=== PATIENT | male | born 1980 | race Caucasian/White ===

== ENCOUNTER 2017-07-27 09:23 | Inpatient (IN) | END 2017-08-06 18:45 | DRG 897 ==

== ENCOUNTER 2017-08-21 02:55 | Inpatient (IN) | END 2017-08-29 12:25 | disposition home or self-care (01) | DRG 896 ==

== ENCOUNTER 2018-04-13 15:48 | Inpatient (IN) | payer OTHER ==
[~2018-04-13] VITALS: Ht 175.3 cm; Wt 68.6 kg
[~2018-04-13 15:48] MED LIST: FLUO40CA10 PO; FOLI-49 PO; MULTI PO; QUET300T2 PO; THIA100T56 PO; TRA100 PO
[2018-04-13 17:54] VITALS: BP 128/83; PULSE 103; RESP 18
[2018-04-13 17:55] VITALS: PULSE 113
[2018-04-13] MEDS ORDERED: HYDROCODONE/APAP (5/325) TAB PO PRN (18:00)
[2018-04-13] MEDS ORDERED: ACETAMINOPHEN 325 MG TAB PO PRN (18:00)
[2018-04-13] MEDS ORDERED: NACL 0.9% 3 ML SYG IV SCH (18:00)
[2018-04-13] MEDS ORDERED: ACETAMINOPHEN 650 MG SUPP PR PRN (18:00)
[2018-04-13 18:25] VITALS: Ht 175.3 cm; Wt 68.6 kg
--- NOTE | 2018-04-13 18:27 | HP ---
Date/Time of Note Date/Time of Note DATE: 04/13/18 TIME: 18:27 Assessment/Plan VTE Prophylaxis Pharmacological prophylaxis: other Assessment/Plan Hospital Course Objective Physical exam General: Patient is laying in bed and answers questions appropriately Mentation: Patient is alert and oriented 4, Head: Normocephalic atraumatic Eyes: EOMI, pupils reactive to light Neck: Supple, nontender, midline Respiratory: Clear to auscultation bilaterally Cardiovascular: regular rate, no obvious murmurs Gastrointestinal: Tender to palpation, bowel sounds heard. Neurological: Moves all extremities spontaneously Skin: No new skin lesions Assessment and plan Acute abdominal pain secondary to acute pancreatitis -Lipase elevated to 394 at outside facility, patient states this is just like all his other pancreatitis episodes -Ultrasound gallbladder done at outside facility does not show any acute issues with abdominal pain, some gallbladder sludge but no acute cholecystitis -We will order stat CT of the abdomen pelvis to rule out pancreatic issues as ultrasound did not directly visualized pancreas -N.p.o. -IV fluids -Monitor Acute alcohol intoxication -Patient has a history of withdrawal -IV Ativan for now as patient is n.p.o., scheduled and as needed Mood disorder -Continue home meds when able to tolerate p.o. Disposition -Admit for alcohol withdrawal, acute alcohol intoxication as well as pancreatitis. HPI/ROS Admit Date/Time Admit Date/Time Apr 13, 2018 at 17:31 Hx of Present Illness Patient is a male with a past medical history of alcohol abuse and mood disorder who presented as a transfer from outside facility for acute ethanol intoxication as well as withdrawal with pancreatitis. Is complaining of abdominal pain at this time and anxiety, patient states that he knows that it is felt due to alcohol. Patient states that he is in a lot of pain however appears comfortable. Patient denies headache, shortness of breath, chest pain, leg pain PMH/Family/Social Past Medical History Medications Current Medications Sodium Chloride 1,000 ml @ 150 mls/hr Q6H40M IV ; Start 04/13/18 at 17:59; Status UNV IV Flush (NS 3 ml) 3 ml PER PROTOCOL IV ; Start 04/13/18 at 18:00 Lorazepam (Ativan) 0.5 mg Q6H PRN IV ANXIETY; Start 04/13/18 at 18:00 Ondansetron HCl (Zofran Inj) 4 mg Q6H PRN IV NAUSEA AND/OR VOMITING; Start 04/13/18 at 18:00 Acetaminophen (Tylenol Tab) 650 mg Q6H PRN PO PAIN LEVEL 1-3 OR FEVER; Start 04/13/18 at 18:00 Acetaminophen (Tylenol Supp) 650 mg Q6H PRN [place] PAIN LEVEL 1-3 OR FEVER; Start 04/13/18 at 18:00 Acetaminophen/ Hydrocodone Bitart ([place] (5/325)) 1 tab Q6H PRN PO PAIN LEVEL 4-6; Start 04/13/18 at 18:00 Morphine Sulfate (morphine SULFATE (PF)) 2 mg Q4H PRN IV PAIN LEVEL 7-10; Start 04/13/18 at 18:00 Multivitamins 10 ml/Thiamine HCl 100 mg/Folic Acid 1 mg/Sodium Chloride 1,011.2 ml @ 125 mls/ hr DAILY@09 IVPB ; Start 04/14/18 at 09:00 Lorazepam (Ativan) 1 mg Q6H IV ; Start 04/13/18 at 18:30 Pantoprazole (Protonix Iv) 40 mg BID IV ; Start 04/14/18 at 06:00; Status UNV Pantoprazole (Protonix Iv) 40 mg ONCE ONCE IV ; Start 04/13/18 at 18:30; Stop 04/13/18 at 18:31 Coded Allergies: No Known Allergy (Unverified , 07/27/17) Past Surgical History Past Surgical Hx: no surgical history Family History Significant Family History: no pertinent family hx Exam/Review of Systems Vital Signs Vitals Vital Signs Date Temp Pulse Resp B/P (MAP) Pulse Ox O2 O2 Flow FiO2 Time Delivery Rate 04/13/18 113 17:55 04/13/18 98.4 18 128/83 90 Room Air 17:54 (98) YOSELYN SCHWARZ Apr 13, 2018 18:27
[2018-04-13] MEDS ORDERED: PANTOPRAZOLE 40 MG INJ IV ONE (18:30)
[2018-04-13] MEDS: SOD CHLORIDE 0.9% 1,000 ML IV SCH (19:54)
[2018-04-13] MEDS: LORAZEPAM 2 MG INJ IV SCH (19:54)
[2018-04-13 20:00] VITALS: PULSE 114
[2018-04-13 20:16] VITALS: BP 129/82; PULSE 91; RESP 16
[2018-04-13] MEDS: morphine SULFATE/PF (2 MG/2 ML) SYG IV PRN (21:29)
--- NOTE | 2018-04-13 22:20 | NUR ---
RN NOTE Patient off unit went to CT, for ct abdomen..
--- NOTE | 2018-04-13 22:27 | NUR ---
RN NOTE PATIENT BACK FROM CT.
[2018-04-13] MEDS: POTASSIUM CHLORIDE 100 ML IVPB SCH (22:28)
[2018-04-13] MEDS: KETOROLAC 30 MG INJ IV PRN (23:07)
[2018-04-14] VITALS (14 sets, daily range): BP systolic 111–129; BP diastolic 67–87; PULSE 75–150; RESP 16–20
[2018-04-14] MEDS: POTASSIUM CHLORIDE 100 ML IVPB SCH (00:31)
[2018-04-14] MEDS: SOD CHLORIDE 0.9% 1,000 ML IV SCH ×4 (00:39→20:39)
[2018-04-14] MEDS: LORAZEPAM 2 MG INJ IV SCH ×4 (01:21→18:22)
[2018-04-14] MEDS: morphine SULFATE/PF (2 MG/2 ML) SYG IV PRN ×5 (01:30→23:57)
[2018-04-14] MEDS: PANTOPRAZOLE 40 MG INJ IV SCH ×2 (05:27→17:18)
[2018-04-14] MEDS: KETOROLAC 30 MG INJ IV PRN ×3 (05:27→22:11)
[2018-04-14] MEDS ORDERED: PANTOPRAZOLE 40 MG INJ IV SCH (06:00)
--- NOTE | 2018-04-14 06:40 | NUR ---
RN NOTE PATIENT WITH LOW URINE OUT PUT, BLADDER SCAN DONE WITH A POST VOID RESIDUAL OF [address] QUIGLEY NOTIFIED, AND HE ORDERED TO STRAIGHT CATH PATIENT.
--- NOTE | 2018-04-14 06:45 | NUR ---
RN NOTE PATIENT ALERT AND ORIENTED X 4, AMBULATORY WITH STEADY GAIT. PATIENT WITH LOW URINE OUT PUT 400 ML THROUGHOUT THE NIGHT, NOTIFIED DR. QUIGLEY AND HE ORDERED STRAIGHT CATH. PATIENT REFUSED STRAIGHT CATH FOR NOW, HE WANTS TO URINATE ON HIS OWN. DR. QUIGLEY NOTIFIED ABOUT THE PATIENT'S REFUSAL. WILL CONTINUE TO MONITOR PATIENT.
[2018-04-14] MEDS: MULTIVITAMINS 10 ML, FOLIC ACID 1 MG in SOD CHLORIDE 0.9% 1,000 ML IVPB SCH (08:51)
[2018-04-14] MEDS: THIAMINE IV FOR USE IN BANANA BAG IS CURRENTLY NOT AVAILABLE FROM MANUFACTURER. XX SCH (09:00)
[2018-04-14] MEDS: PIPER-TAZO 3.375 GM IV (PMX) 100 ML IVPB SCH ×3 (11:49→23:58)
--- NOTE | 2018-04-14 13:25 | NUR ---
SW: ETOH GUSTAVO met with this 37-year-old Faroese speaking male at bedside regarding ETOH abuse. Patient states he currently lives in a sober living facility located in [place], but states he does not know the exact address. Patient states he thinks he will be returning back to the sober living facility, as they have all of his belongings. He states he does not know the exact address, but states he knows how to get back. Patient requesting bus tokens, which will be provided upon d/c. Patient states he is currently single. States all of his friends and family live in [place]. Denies having an AHCD and he verbally designated his mother Susan Song ([phone]) as surrogate spokesperson. Substance use: Patient states that he had been sober from alcohol for about 6 months. However, states that he started drinking again about a week ago due to the holidays. States that his alcohol of preference is Vodka. States that he started off drinking a little bit, but it started increasing over the days. Patient states that he currently goes to [facility] as an outpatient about 2x a week for about 3 hours a day. Patient declined any other alcohol treatment programs, stating that he plans to return back to [facility]. Mental Health: Patient states he has a history of anxiety and OCD and states that he is involved with the [facility] program, which is what pays for his sober living expenses. Patient states he does not know the [facility] contact information and requested the contact number. SW provided him with the P contact information, and also provided him with resources for [facility]. Patient states he currently takes Prozac, Seroquel and Trazodone to manage symptoms. Patient denies any past/ present thoughts, ideations or plans of suicide/ homicide. Plan/ Follow UP: Plan is for patient to take the bus to go back to his current sober living location. He states he will contact his [employer] program worker regarding assistance if needed. He states that his sober living has all of his belongings. Patient will be provided with bus tokens. He declined needing any assistance with directions, etc, stating he knows how to get back. Patient states he will continue to attend [facility] for alcohol abuse, and declined any resources. Patient denies any other questions/ concerns at this time. Director Of Vendor Management remains available as needed throughout patient's treatment process.
--- NOTE | 2018-04-14 13:48 | PN ---
Date/Time of Note Date/Time of Note DATE: 04/14/18 TIME: 13:44 Objective Vitals Vital Signs Date Temp Pulse Resp B/P (MAP) Pulse Ox O2 O2 Flow FiO2 Time Delivery Rate 04/14/18 124 12:01 04/14/18 98.3 16 126/87 96 11:40 (100) 04/13/18 Room Air 17:54 Intake and Output 04/13/18 04/13/18 04/14/18 1515:00 23:00 07:00 IntakeIntake Total 1200 ml OutputOutput Total 450 ml BalanceBalance 750 ml Results Result Diagram: 04/14/18 0529 04/14/18 05 Medications Medications Current Medications Sodium Chloride 1,000 ml @ 150 mls/hr Q6H40M IV Last administered on 04/13/18at 19:54; Admin Dose 150 MLS/HR; Start 04/13/18 at 17:59 IV Flush (NS 3 ml) 3 ml PER PROTOCOL IV ; Start 04/13/18 at 18:00 Lorazepam (Ativan) 0.5 mg Q6H PRN IV ANXIETY; Start 04/13/18 at 18:00 Ondansetron HCl (Zofran Inj) 4 mg Q6H PRN IV NAUSEA AND/OR VOMITING; Start 04/13/18 at 18:00 Acetaminophen (Tylenol Tab) 650 mg Q6H PRN PO PAIN LEVEL 1-3 OR FEVER; Start 04/13/18 at 18:00 Acetaminophen (Tylenol Supp) 650 mg Q6H PRN [place] PAIN LEVEL 1-3 OR FEVER; Start 04/13/18 at 18:00 Acetaminophen/ Hydrocodone Bitart ([place] (5/325)) 1 tab Q6H PRN PO PAIN LEVEL 4-6; Start 04/13/18 at 18:00 Multivitamins 10 ml/Folic Acid 1 mg/Sodium Chloride 1,010.2 ml @ 125 mls/ hr DAILY@09 IVPB Last administered on 04/14/18at 08:51; Admin Dose 125 MLS/HR; Start 04/14/18 at 09:00 Lorazepam (Ativan) 1 mg Q6H IV Last administered on 04/14/18at 11:49; Admin Dose 1 MG; Start 04/13/18 at 18:30 Pantoprazole (Protonix Iv) 40 mg BID@0600,1800 IV Last administered on 04/14/18at 05:27; Admin Dose 40 MG; Start 04/14/18 at 06:00 Miscellaneous Information (* Miscellaneous Pharmacy Order) THIAMINE IV FOR USE IN [place] ... DAILY@0900 XX ; Start 04/14/18 at 09:00 Ketorolac Tromethamine (Toradol) 30 mg Q6H PRN IV PAIN LEVEL 1-3 Last administe red on 04/14/18at 12:21; Admin Dose 30 MG; Start 04/13/18 at 23:00; Stop 04/16/18 at 22:59 Piperacillin Sod/ Tazobactam Sod 100 ml @ 200 mls/hr Q6 IVPB Last administered on 04/14/18at 11:49; Admin Dose 200 MLS/HR; Start 04/14/18 at 12:00 Morphine Sulfate (morphine SULFATE (PF)) 3 mg Q4H PRN IV PAIN LEVEL 7-10; Start 04/14/18 at 14:00 VTE Prophylaxis Risk score (from Ns)>0 risk: 1 SCD applied (from Ns): Yes Lines/Catheters IV Catheter Type: Vitale in Place: Yes Cont'd vitale catheter reason: urinary retention Assessment/Plan Hospital Course subjective still with abdominal pain, also unable to urinate Objective Physical exam General: Patient is laying in bed and answers questions appropriately Mentation: Patient is alert and oriented 4, Head: Normocephalic atraumatic Eyes: EOMI, pupils reactive to light Neck: Supple, nontender, midline Respiratory: Clear to auscultation bilaterally Cardiovascular: regular rate, no obvious murmurs Gastrointestinal: Tender to palpation, bowel sounds heard. Neurological: Moves all extremities spontaneously Skin: No new skin lesions Assessment and plan Acute abdominal pain secondary to acute pancreatitis -Lipase elevated to 394 at outside facility, patient states this is just like all his other pancreatitis episodes, lipase in the 900's on arrival here. -Ultrasound gallbladder done at outside facility does not show any acute issues with abdominal pain, some gallbladder sludge but no acute cholecystitis -CT showing diffusely inflamed pancreas consistent with pancreatitis with some stranding, fatty infiltration of the liver -Prophylactic Zosyn for the stranding of the pancreas for now -N.p.o. -IV fluids -Monitor Urinary retention -Questionable etiology, questionable enlarged prostate -Unable to urinate and bladder scan showed over 700 cc of urine -Vitale inserted -Hold off on Flomax for now as patient is n.p.o. -Reattempt removal tomorrow or another day Acute alcohol intoxication -Patient has a history of withdrawal -IV Ativan for now as patient is n.p.o., scheduled and as needed Mood disorder -Continue home meds when able to tolerate p.o. Sinus tachycardia -Likely secondary to pain as well as urinary bladder distention -Has momentary episodes of tachycardia and goes back to regular rate at other times. Disposition -Admit for alcohol withdrawal, acute alcohol intoxication as well as pancreatitis. -Monitor urine output YOSELYN SCHWARZ Apr 14, 2018 13:48
--- NOTE | 2018-04-14 18:01 | NUR ---
EOSS Pt is alert and oriented x4 , given Toradol and Morphine for abdominal pain . With Banana bag , alternating with NS. SR on the monitor. López cath inserted for retention. Continue to monitor pt.
[2018-04-14] MEDS: LORAZEPAM 2 MG INJ IV PRN (22:12)
[2018-04-14] MEDS: DEXTROSE 5%-0.9% NACL 1,000 ML IV SCH (22:15)
[2018-04-15] VITALS (11 sets, daily range): BP systolic 115–121; BP diastolic 68–80; PULSE 71–103; RESP 17–20
[2018-04-15] MEDS: LORAZEPAM 2 MG INJ IV SCH ×4 (00:26→18:33)
[2018-04-15] MEDS: DEXTROSE 5%-0.9% NACL 1,000 ML IV SCH ×4 (04:10→17:30)
[2018-04-15] MEDS: morphine SULFATE/PF (2 MG/2 ML) SYG IV PRN ×6 (04:17→22:56)
[2018-04-15] MEDS: PANTOPRAZOLE 40 MG INJ IV SCH ×2 (05:51→18:33)
[2018-04-15] MEDS: KETOROLAC 30 MG INJ IV PRN ×3 (05:52→18:46)
[2018-04-15] MEDS: PIPER-TAZO 3.375 GM IV (PMX) 100 ML IVPB SCH ×3 (05:53→18:25)
--- NOTE | 2018-04-15 06:35 | NUR ---
516A RN END OF SHIFT NOTE PATIENT ALERT AND ORIENTED X 4, VERY ANXIOUS DUE TO PAIN AND ETOH WITHDRAWAL. PATIENT C/O SEVERE ABDOMINAL PAIN, MORPHINE 3MG IVP AND TORADOL 30 MG IVP GIVEN ALTERNATIVELY WITH PARTIAL EFFECTIVENESS. ATIVAN 0.5 MG IVP GIVEN Q 6 HOURS SCHEDULED. PATIENT GETS FIDGETY WHEN ATIVAN WEARS OFF. HE STATED THAT HE FELT LIKE HE IS OUT OF HIS MIND, AND CANNOT LAY STILL IN BED WELL. HOURLY ROUNDING AND BED ALARM IN PLACE. PATIENT HAS A KUMARI CATHETER DUE TO URINE RETENTION. BED BATH GIVEN, AND LINENS CHANGED. BED IN THE LOWEST POSITION WITH BRAKES ENGAGED. CALL LIGHT AND PERSONAL ITEMS WITHIN EASY REACH. ENDORSED TO DAY SHIFT RN.
[2018-04-15] MEDS: POTASSIUM CHLORIDE 100 ML IVPB SCH ×2 (13:47→16:19)
--- NOTE | 2018-04-15 14:36 | CONS ---
Date/Time of Note Date/Time of Note DATE: 04/15/18 TIME: 14:18 Assessment/Plan Assessment/Plan Hospital Course Summary Assessment and Plan: Assessment: Recurrent pancreatitis, ETOH induced Elevated liver enzymes -CT with contrast shows no focal mass or dilatation of the biliary tree. Normocytic anemia Alcohol-induced fatty liver- (query alcoholic hepatitis will order PT/INR to assess DF) Alcohol abuse Plan: Continue strict n.p.o. IVF , pain management Will check IgG to R/o AIP-although given history likely secondary to alcohol abuse Monitor labs Will order MRCP - given in crease in AST/ALT- r/o CBD obstruction Further recommendations based on clinical course Patient seen in collaboration with Dr. Graham Result Diagram: 04/15/18 0543 04/15/18 0543 Results 24hrs Laboratory Tests Test 04/14/18 19:58 04/15/18 05:43 Bedside Glucose 71 White Blood Count 6.1 Red Blood Count 3.19 L Hemoglobin 10.5 L Hematocrit 31.0 L Mean Corpuscular Volume 97.2 Mean Corpuscular Hemoglobin 32.9 Mean Corpuscular Hemoglobin Concent 33.9 Red Cell Distribution Width 12.6 Platelet Count 137 L Mean Platelet Volume 9.1 Immature Granulocytes % 0.200 Neutrophils % 79.0 H Lymphocytes % 11.1 L Monocytes % 5.4 Eosinophils % 4.1 Basophils % 0.2 Nucleated Red Blood Cells % 0.0 Immature Granulocytes # 0.010 Neutrophils # 4.8 Lymphocytes # 0.7 L Monocytes # 0.3 Eosinophils # 0.3 Basophils # 0.0 Nucleated Red Blood Cells # 0.0 Sodium Level 138 Potassium Level 3.3 L Chloride Level 102 Carbon Dioxide Level 25 Anion Gap 11 Blood Urea Nitrogen 3 #L Creatinine 0.52 L Est Glomerular Filtrat Rate mL/min > 60 Glucose Level 100 # Calcium Level 8.0 L Magnesium Level 2.0 Total Bilirubin 0.9 Direct Bilirubin 0.00 Indirect Bilirubin 0.9 Aspartate Amino Transf (AST/SGOT) 306 #H Alanine Aminotransferase (ALT/SGPT) 158 H Alkaline Phosphatase 87 Total Protein 6.5 Albumin 3.5 Globulin 3.00 Albumin/Globulin Ratio 1.16 Lipase 796 H CC: ORLIN GRAHAM MD ; Consultation Date/Type/Reason Admit Date/Time Apr 13, 2018 at 17:31 Date of Consultation: Apr 15, 2018 Type of Consult GI Reason for Consultation Recurrent pancreatitis Hx of Present Illness This is a 37-year-old male with past medical history of recurrent pancreatitis a t least 6-7 episodes per patient, anxiety/depression which he is on Prozac, trazodone, and Seroquel, alcohol abuse drinking up to 1 bottle of vodka per day since he was a teenager, marijuana use, current smoker who presented to the hospital with upper abdominal pain imaging was obtained patient found to have acute pancreatitis with elevated lipase. He has been n.p.o. and IV fluids however pain has persisted and labs have increased. Currently denies nausea/vomiting, no evidence of melena or hematochezia. In fact patient complains of constipation at this time. His last alcoholic beverage was prior to admission. We will check IgG to rule out autoimmune pancreatitis although given history likely secondary to alcohol abuse. We will continue current regimen in place n.p.o. with IV fluids and pain management. Review of Systems: A 12 system, review was conducted and is negative except as noted in the HPI or here. Past Medical History Medications Current Medications IV Flush (NS 3 ml) 3 ml PER PROTOCOL IV ; Start 04/13/18 at 18:00 Lorazepam (Ativan) 0.5 mg Q6H PRN IV ANXIETY Last administered on 04/14/18at 22:12; Admin Dose 0.5 MG; Start 04/13/18 at 18:00 Ondansetron HCl (Zofran Inj) 4 mg Q6H PRN IV NAUSEA AND/OR VOMITING; Start 04/13/18 at 18:00 Acetaminophen (Tylenol Tab) 650 mg Q6H PRN PO PAIN LEVEL 1-3 OR FEVER; Start 04/13/18 at 18:00 Acetaminophen (Tylenol Supp) 650 mg Q6H PRN [place] PAIN LEVEL 1-3 OR FEVER; Start 04/13/18 at 18:00 Acetaminophen/ Hydrocodone Bitart ([place] (5/325)) 1 tab Q6H PRN PO PAIN LEVEL 4-6; Start 04/13/18 at 18:00 Multivitamins 10 ml/Folic Acid 1 mg/Sodium Chloride 1,010.2 ml @ 125 mls/ hr DAILY@09 IVPB Last administered on 04/14/18at 08:51; Admin Dose 125 MLS/HR; Start 04/14/18 at 09:00 Lorazepam (Ativan) 1 mg Q6H IV Last administered on 04/15/18at 12:02; Admin Dose 1 MG; Start 04/13/18 at 18:30 Pantoprazole (Protonix Iv) 40 mg BID@0600,1800 IV Last administered on 04/15/18at 05:51; Admin Dose 40 MG; Start 04/14/18 at 06:00 Miscellaneous Information (* Miscellaneous Pharmacy Order) THIAMINE IV FOR USE IN [place] ... DAILY@0900 XX ; Start 04/14/18 at 09:00 Ketorolac Tromethamine (Toradol) 30 mg Q6H PRN IV PAIN LEVEL 1-3 Last administered on 04/15/18at 12:29; Admin Dose 30 MG; Start 04/13/18 at 23:00; Stop 04/16/18 at 22:59 Piperacillin Sod/ Tazobactam Sod 100 ml @ 200 mls/hr Q6 IVPB Last administered on 04/15/18at 12:02; Admin Dose 200 MLS/HR; Start 04/14/18 at 12:00 Dextrose/Sodium Chloride 1,000 ml @ 150 mls/hr Q6H40M IV Last administered on 04/15/18at 06:03; Admin Dose 150 MLS/HR; Start 04/14/18 at 21:30 Potassium Chloride 100 ml @ 50 mls/hr Q2H IVPB Last administered on 04/15/18at 13:47; Admin Dose 50 MLS/HR; Start 04/15/18 at 13:00; Stop 04/15/18 at 16:59 Morphine Sulfate (morphine SULFATE (PF)) 3 mg Q2H PRN IV PAIN LEVEL 7-10; Start 04/15/18 at 12:00 Allergies: Coded Allergies: No Known Allergy (Unverified , 07/27/17) Past Surgical History Past Surgical Hx: no surgical history Social History Smoking Status: Current every day smoker Exam/Review of Systems Vital Signs Vitals Vital Signs Date Temp Pulse Resp B/P (MAP) Pulse Ox O2 O2 Flow FiO2 Time Delivery Rate 04/15/18 85 12:27 04/15/18 97.9 18 120/77 97 12:07 (91) 04/13/18 Room Air 17:54 Intake and Output 04/14/18 04/14/18 04/15/18 1515:00 23:00 07:00 IntakeIntake Total 100 ml 1000 ml 850 ml OutputOutput Total 2000 ml 2500 ml BalanceBalance 100 ml -1000 ml -1650 ml Exam PHYSICAL EXAMINATION: GENERAL: Alert & oriented x 3 SKIN: No lesions, EYES: Pupils, dilated, reactive to light, no discharge. EARS/NOSE AND THROAT: Ears normal, nose normal, oropharynx normal. NECK: Supple, no masses CHEST: Inspection within normal limits. CARDIOVASCULAR: Heart: Regular rate and rhythm RESPIRATORY: Lungs clear to auscultation GASTROINTESTINAL AND LIVER: Abdomen: Soft, upper abd pain 10/10, non-distended, no hernias, no masses, no organomegaly, no ascites, no guarding, no rebound tenderness, normoactive bowel sounds. Rectal: Deferred. GENITOURINARY:Not examined EXTREMITIES: No cyanosis, clubbing or edema. Medications Medications Current Medications IV Flush (NS 3 ml) 3 ml PER PROTOCOL IV ; Start 04/13/18 at 18:00 Lorazepam (Ativan) 0.5 mg Q6H PRN IV ANXIETY Last administered on 04/14/18at 22:12; Admin Dose 0.5 MG; Start 04/13/18 at 18:00 Ondansetron HCl (Zofran Inj) 4 mg Q6H PRN IV NAUSEA AND/OR VOMITING; Start 04/13/18 at 18:00 Acetaminophen (Tylenol Tab) 650 mg Q6H PRN PO PAIN LEVEL 1-3 OR FEVER; Start 04/13/18 at 18:00 Acetaminophen (Tylenol Supp) 650 mg Q6H PRN [place] PAIN LEVEL 1-3 OR FEVER; Start 04/13/18 at 18:00 Acetaminophen/ Hydrocodone Bitart ([place] (5/325)) 1 tab Q6H PRN PO PAIN LEVEL 4-6; Start 04/13/18 at 18:00 Multivitamins 10 ml/Folic Acid 1 mg/Sodium Chloride 1,010.2 ml @ 125 mls/ hr DAILY@09 IVPB Last administered on 04/14/18at 08:51; Admin Dose 125 MLS/HR; Start 04/14/18 at 09:00 Lorazepam (Ativan) 1 mg Q6H IV Last administered on 04/15/18at 12:02; Admin Dose 1 MG; Start 04/13/18 at 18:30 Pantoprazole (Protonix Iv) 40 mg BID@0600,1800 IV Last administered on 04/15/18at 05:51; Admin Dose 40 MG; Start 04/14/18 at 06:00 Miscellaneous Information (* Miscellaneous Pharmacy Order) THIAMINE IV FOR USE IN [place] ... DAILY@0900 XX ; Start 04/14/18 at 09:00 Ketorolac Tromethamine (Toradol) 30 mg Q6H PRN IV PAIN LEVEL 1-3 Last administered on 04/15/18at 12:29; Admin Dose 30 MG; Start 04/13/18 at 23:00; Stop 04/16/18 at 22:59 Piperacillin Sod/ Tazobactam Sod 100 ml @ 200 mls/hr Q6 IVPB Last administered on 04/15/18at 12:02; Admin Dose 200 MLS/HR; Start 04/14/18 at 12:00 Dextrose/Sodium Chloride 1,000 ml @ 150 mls/hr Q6H40M IV Last administered on 04/15/18at 06:03; Admin Dose 150 MLS/HR; Start 04/14/18 at 21:30 Potassium Chloride 100 ml @ 50 mls/hr Q2H IVPB Last administered on 04/15/18at 13:47; Admin Dose 50 MLS/HR; Start 04/15/18 at 13:00; Stop 04/15/18 at 16:59 Morphine Sulfate (morphine SULFATE (PF)) 3 mg Q2H PRN IV PAIN LEVEL 7-10; Start 04/15/18 at 12:00 FENG ZAMAN Apr 15, 2018 14:30
--- NOTE | 2018-04-15 16:23 | PN ---
Date/Time of Note Date/Time of Note DATE: 04/15/18 TIME: 16:21 Objective Vitals Vital Signs Date Temp Pulse Resp B/P (MAP) Pulse Ox O2 O2 Flow FiO2 Time Delivery Rate 04/15/18 85 12:27 04/15/18 97.9 18 120/77 97 12:07 (91) 04/13/18 Room Air 17:54 Intake and Output 04/14/18 04/14/18 04/15/18 1515:00 23:00 07:00 IntakeIntake Total 100 ml 1000 ml 850 ml OutputOutput Total 2000 ml 2500 ml BalanceBalance 100 ml -1000 ml -1650 ml Results Result Diagram: 04/15/1843 04/15/18542 Medications Medications Current Medications IV Flush (NS 3 ml) 3 ml PER PROTOCOL IV ; Start 04/13/18 at 18:00 Lorazepam (Ativan) 0.5 mg Q6H PRN IV ANXIETY Last administered on 04/14/18at 22:12; Admin Dose 0.5 MG; Start 04/13/18 at 18:00 Ondansetron HCl (Zofran Inj) 4 mg Q6H PRN IV NAUSEA AND/OR VOMITING; Start 04/13/18 at 18:00 Acetaminophen (Tylenol Tab) 650 mg Q6H PRN PO PAIN LEVEL 1-3 OR FEVER; Start 04/13/18 at 18:00 Acetaminophen (Tylenol Supp) 650 mg Q6H PRN [place] PAIN LEVEL 1-3 OR FEVER; Start 04/13/18 at 18:00 Acetaminophen/ Hydrocodone Bitart ([place] (5/325)) 1 tab Q6H PRN PO PAIN LEVEL 4-6; Start 04/13/18 at 18:00 Multivitamins 10 ml/Folic Acid 1 mg/Sodium Chloride 1,010.2 ml @ 125 mls/ hr DAILY@09 IVPB Last administered on 04/14/18at 08:51; Admin Dose 125 MLS/HR; Start 04/14/18 at 09:00 Lorazepam (Ativan) 1 mg Q6H IV Last administered on 04/15/18at 12:02; Admin Dose 1 MG; Start 04/13/18 at 18:30 Pantoprazole (Protonix Iv) 40 mg BID@0600,1800 IV Last administered on 04/15/18at 05:51; Admin Dose 40 MG; Start 04/14/18 at 06:00 Miscellaneous Information (* Miscellaneous Pharmacy Order) THIAMINE IV FOR USE IN [place] ... DAILY@0900 XX ; Start 04/14/18 at 09:00 Ketorolac Tromethamine (Toradol) 30 mg Q6H PRN IV PAIN LEVEL 1-3 Last administered on 04/15/18at 12:29; Admin Dose 30 MG; Start 04/13/18 at 23:00; Stop 04/16/18 at 22:59 Piperacillin Sod/ Tazobactam Sod 100 ml @ 200 mls/hr Q6 IVPB Last administered on 04/15/18at 12:02; Admin Dose 200 MLS/HR; Start 04/14/18 at 12:00 Dextrose/Sodium Chloride 1,000 ml @ 150 mls/hr Q6H40M IV Last administered on 04/15/18at 06:03; Admin Dose 150 MLS/HR; Start 04/14/18 at 21:30 Potassium Chloride 100 ml @ 50 mls/hr Q2H IVPB Last administered on 04/15/18at 16:19; Admin Dose 50 MLS/HR; Start 04/15/18 at 13:00; Stop 04/15/18 at 16:59 Morphine Sulfate (morphine SULFATE (PF)) 3 mg Q2H PRN IV PAIN LEVEL 7-10 Last administered on 04/15/18at 14:39; Admin Dose 3 MG; Start 04/15/18 at 12:00 VTE Prophylaxis Risk score (from Nsg)>0 risk: 1 SCD applied (from Nsg): Yes Lines/Catheters IV Catheter Type: Vitale in Place: Yes Cont'd vitale catheter reason: urinary retention Assessment/Plan Hospital Course subjective still with abdominal pain, also unable to urinate Objective Physical exam General: Patient is laying in bed and answers questions appropriately Mentation: Patient is alert and oriented 4, Head: Normocephalic atraumatic Eyes: EOMI, pupils reactive to light Neck: Supple, nontender, midline Respiratory: Clear to auscultation bilaterally Cardiovascular: regular rate, no obvious murmurs Gastrointestinal: Tender to palpation, bowel sounds heard. Neurological: Moves all extremities spontaneously Skin: No new skin lesions Assessment and plan Acute abdominal pain secondary to acute pancreatitis -Lipase elevated to 394 at outside facility, patient states this is just like all his other pancreatitis episodes, lipase in the 900's on arrival here. -Ultrasound gallbladder done at outside facility does not show any acute issues with abdominal pain, some gallbladder sludge but no acute cholecystitis -CT showing diffusely inflamed pancreas consistent with pancreatitis with some stranding, fatty infiltration of the liver -Prophylactic Zosyn for the stranding of the pancreas for now -N.p.o. -IV fluids -Monitor -GI consulted Urinary retention -Questionable etiology, questionable enlarged prostate -Unable to urinate and bladder scan showed over 700 cc of urine -Vitale inserted -Hold off on Flomax for now as patient is n.p.o. -Reattempt removal tomorrow or another day Acute alcohol intoxication -Patient has a history of withdrawal -IV Ativan for now as patient is n.p.o., scheduled and as needed Mood disorder -Continue home meds when able to tolerate p.o. Sinus tachycardia -Likely secondary to pain as well as urinary bladder distention -Has momentary episodes of tachycardia and goes back to regular rate at other times. Disposition -Admit for alcohol withdrawal, acute alcohol intoxication as well as pancreatitis. -Monitor urine output YOSELYN SCHWARZ Apr 15, 2018 16:23
[2018-04-15] MEDS: MULTIVITAMINS 10 ML, FOLIC ACID 1 MG in SOD CHLORIDE 0.9% 1,000 ML IVPB SCH (18:25)
--- NOTE | 2018-04-15 18:47 | NUR ---
EOSS Pt is alert and oriented x 3 , with abdominal pain given toradol and morphine , SR and ST on monitor, With IVF maintenance , alternating with Banana Bag, With IV antibiotics. Potassium replaced . MRI abdomen done. Fall precautions in place. Continue to monitor pt.
[2018-04-15] MEDS: THIAMINE IV FOR USE IN BANANA BAG IS CURRENTLY NOT AVAILABLE FROM MANUFACTURER. XX SCH (19:34)
[2018-04-15] MEDS: LORAZEPAM 2 MG INJ IV PRN (20:25)
[2018-04-16] VITALS (10 sets, daily range): BP systolic 109–123; BP diastolic 74–82; PULSE 73–146; RESP 16–20
[2018-04-16] MEDS: DEXTROSE 5%-0.9% NACL 1,000 ML IV SCH ×4 (00:10→22:26)
[2018-04-16] MEDS: PIPER-TAZO 3.375 GM IV (PMX) 100 ML IVPB SCH ×4 (00:55→18:06)
[2018-04-16] MEDS: LORAZEPAM 2 MG INJ IV SCH ×4 (00:56→18:05)
--- NOTE | 2018-04-16 03:08 | NUR ---
note: RN scanned morphine sulfate 3mg around 0100, but somehow it didn't go through the [place], charge nurse, Mane witnessed pt stated last dose pt received was around 0100, pharmacy notified.
[2018-04-16] MEDS: morphine SULFATE/PF (2 MG/2 ML) SYG IV PRN ×3 (03:11→08:56)
[2018-04-16] MEDS: LORAZEPAM 2 MG INJ IV PRN ×2 (03:19→20:28)
[2018-04-16] MEDS: PANTOPRAZOLE 40 MG INJ IV SCH ×2 (05:52→18:06)
--- NOTE | 2018-04-16 06:48 | NUR ---
end of shift note: received pt lying on bed with vitale in placed, pt alert oriented x4, looking anxious, able to ambulate with assist but remain bedrest overnight, still c/o of abdomen pain that controlled with PRN iv morphine 3mg q2h, pt have been receiving it around the clock for pain. vital signs stable. skin intact, remain NPO, continue to monitor pt
[2018-04-16] MEDS: THIAMINE IV FOR USE IN BANANA BAG IS CURRENTLY NOT AVAILABLE FROM MANUFACTURER. XX SCH (08:36)
[2018-04-16] MEDS: MULTIVITAMINS 10 ML, FOLIC ACID 1 MG in SOD CHLORIDE 0.9% 1,000 ML IVPB SCH (08:56)
[2018-04-16] MEDS: KETOROLAC 30 MG INJ IV PRN ×2 (08:57→16:23)
[2018-04-16] MEDS: ONDANSETRON 4 MG INJ IV PRN (08:57)
--- NOTE | 2018-04-16 10:55 | NUR ---
NURSE ASSESSMENT NOTE A/OX4, MED FOR PAIN PER ORDERS FOR ABD PAIN, SS CONSULT ON CASE FOR ETOH, ABLE TO CALL FOR ASSIST, BED ALARM ENGAGED, CONTINUE TO MONITOR
--- NOTE | 2018-04-16 10:56 | NUR ---
NURSE ASSESSMENT NOTE DEPENDENT FOR CARE, DOES NOT DEMONSTRATE ABILITY TO CALL FOR ASSIST, ANTICIPATE NEEDS, DENIES PAIN, SLOW TO RESPOND BUT RESPONDS APPROPRIATE TO SIMPLE QUESTIONS/COMMANDS, WOUND/NUTRITION CONSULT ON CASE FOR SKIN BREAKDOWN PREVENTION, BED ALARM ENGAGED, CONTINUED MEDS AND TREATMENT FOR PNA PER ORDERS, CONTINUE TO MONITOR Addendum: 04/16/18 at 1059 by COLLEEN CRUZ RN VOID ABOVE NOTE, WRONG NOTE CHARTED
[2018-04-16] MEDS: POTASSIUM CHLORIDE 100 ML IVPB SCH ×3 (12:33→15:16)
[2018-04-16] MEDS: HYDROmorphONE 1 MG/ML SYG IV PRN ×3 (12:34→20:27)
--- NOTE | 2018-04-16 14:12 | PN ---
Date/Time of Note Date/Time of Note DATE: 04/16/18 TIME: 14:02 Assessment/Plan VTE Prophylaxis Risk score (from Nsg)>0 risk: 1 SCD applied (from Nsg): Yes Pharmacological prophylaxis: other (scds) Lines/Catheters IV Catheter Type (from Nrsg): Peripheral IV Urinary Cath still in place: Yes Reason Cath still needed: other (indicate) (monitor out-put) Assessment/Plan Hospital Course Summary Assessment and Plan: Assessment: Recurrent pancreatitis, ETOH induced Elevated liver enzymes -CT with contrast shows no focal mass or dilatation of the biliary tree. -MRCP- neg for choledocholithiasis Normocytic anemia Alcohol-induced fatty liver-DF -8.7- treatment not required Alcohol abuse Plan: Continue n.p.o. except meds consider restarting psych meds IVF , pain management Will check IgG -pending Monitor labs- LFTs continue to trend up- hepatitis panel - neg- will also check auto-immune to be thorough Patient seen in collaboration with Dr. Graham/Mini Subjective: Course reviewed with nursing staff Patient interviewed and examined All labs, imaging and other results reviewed The patient resting in bed, continues to c/o pain 9-10/10 however does not objectively appear to have pain to that degree, Discussed results of MRCP- we will continue to monitor keep NPO, IVF Monitor labs, unclear why lfts are trending up, will observe, other lab work-up is pending. PHYSICAL EXAMINATION: GENERAL: Alert & oriented x 3 SKIN: No lesions, EYES: Pupils, dilated, reactive to light, no discharge. CHEST: Inspection within normal limits. CARDIOVASCULAR: Heart: Regular rate and rhythm RESPIRATORY: Lungs clear to auscultation GASTROINTESTINAL AND LIVER: Abdomen: Soft, upper abd pain 10/10, non-distended, no hernias, no masses, no organomegaly, no ascites, no guarding, no rebound tenderness, normoactive bowel sounds. Rectal: Deferred. GENITOURINARY:Not examined EXTREMITIES: No cyanosis, clubbing or edema. Result Diagram: 04/16/18 0609 04/16/18 0609 Results 24hrs Laboratory Tests Test 04/16/18 06:09 White Blood Count 4.4 #L Red Blood Count 3.40 L Hemoglobin 11.0 L Hematocrit 33.2 L Mean Corpuscular Volume 97.6 Mean Corpuscular Hemoglobin 32.4 Mean Corpuscular Hemoglobin Concent 33.1 Red Cell Distribution Width 12.7 Platelet Count 148 Mean Platelet Volume 9.1 Immature Granulocytes % 0.500 H Neutrophils % 67.7 Lymphocytes % 19.9 Monocytes % 7.6 Eosinophils % 4.1 Basophils % 0.2 Nucleated Red Blood Cells % 0.0 Immature Granulocytes # 0.020 Neutrophils # 3.0 Lymphocytes # 0.9 Monocytes # 0.3 Eosinophils # 0.2 Basophils # 0.0 Nucleated Red Blood Cells # 0.0 Prothrombin Time 12.9 Prothrombin Time Ratio 1.0 INR International Normalized Ratio 0.96 Sodium Level 137 Potassium Level 3.4 L Chloride Level 101 Carbon Dioxide Level 24 Anion Gap 12 Blood Urea Nitrogen 3 L Creatinine 0.54 L Est Glomerular Filtrat Rate mL/min > 60 Glucose Level 87 Calcium Level 8.8 Total Bilirubin 0.5 Direct Bilirubin 0.00 Indirect Bilirubin 0.5 Aspartate Amino Transf (AST/SGOT) 351 H Alanine Aminotransferase (ALT/SGPT) 214 H Alkaline Phosphatase 138 #H Total Protein 7.1 Albumin 3.9 Globulin 3.20 Albumin/Globulin Ratio 1.21 Hepatitis A Antibody Total NEGATIVE Hepatitis B Surface Antigen NEGATIVE Hepatitis B Surface Antibody NEGATIVE Hepatitis B Core Total Antibody NEGATIVE Hepatitis C Antibody NEGATIVE Exam/Review of Systems Vital Signs Vitals Vital Signs Date Temp Pulse Resp B/P (MAP) Pulse Ox O2 O2 Flow FiO2 Time Delivery Rate 04/16/18 146 12:30 04/16/18 Room Air 12:19 04/16/18 98.1 16 112/74 97 11:24 (87) Intake and Output 04/15/18 04/15/18 04/16/18 1515:00 23:00 07:00 IntakeIntake Total 100 ml 1200 ml 1200 ml OutputOutput Total 1200 ml 1700 ml BalanceBalance 100 ml 0 ml -500 ml Medications Medications Current Medications IV Flush (NS 3 ml) 3 ml PER PROTOCOL IV ; Start 04/13/18 at 18:00 Lorazepam (Ativan) 0.5 mg Q6H PRN IV ANXIETY Last administered on 04/16/18at 03:19; Admin Dose 0.5 MG; Start 04/13/18 at 18:00 Ondansetron HCl (Zofran Inj) 4 mg Q6H PRN IV NAUSEA AND/OR VOMITING Last administered on 04/16/18at 08:57; Admin Dose 4 MG; Start 04/13/18 at 18:00 Acetaminophen (Tylenol Tab) 650 mg Q6H PRN PO PAIN LEVEL 1-3 OR FEVER; Start 04/13/18 at 18:00 Acetaminophen (Tylenol Supp) 650 mg Q6H PRN [place] PAIN LEVEL 1-3 OR FEVER; Start 04/13/18 at 18:00 Acetaminophen/ Hydrocodone Bitart ([place] (5/325)) 1 tab Q6H PRN PO PAIN LEVEL 4-6; Start 04/13/18 at 18:00 Multivitamins 10 ml/Folic Acid 1 mg/Sodium Chloride 1,010.2 ml @ 125 mls/ hr DAILY@09 IVPB Last administered on 04/16/18at 08:56; Admin Dose 125 MLS/HR; Start 04/14/18 at 09:00 Lorazepam (Ativan) 1 mg Q6H IV Last administered on 04/16/18at 11:52; Admin Dose 1 MG; Start 04/13/18 at 18:30 Pantoprazole (Protonix Iv) 40 mg BID@0600,1800 IV Last administered on at 05:52; Admin Dose 40 MG; Start 04/14/18 at 06:00 Miscellaneous Information (* Miscellaneous Pharmacy Order) THIAMINE IV FOR USE IN [place] ... DAILY@0900 XX ; Start 04/14/18 at 09:00 Ketorolac Tromethamine (Toradol) 30 mg Q6H PRN IV PAIN LEVEL 1-3 Last administered on 04/16/18at 08:57; Admin Dose 30 MG; Start 04/13/18 at 23:00; Stop 04/16/18 at 22:59 Piperacillin Sod/ Tazobactam Sod 100 ml @ 200 mls/hr Q6 IVPB Last administered on 04/16/18at 11:53; Admin Dose 200 MLS/HR; Start 04/14/18 at 12:00 Dextrose/Sodium Chloride 1,000 ml @ 150 mls/hr Q6H40M IV Last administered on 04/16/18at 06:06; Admin Dose 150 MLS/HR; Start 04/14/18 at 21:30 Potassium Chloride 100 ml @ 50 mls/hr Q2H IVPB Last administered on 04/16/18at 12:33; Admin Dose 50 MLS/HR; Start 04/16/18 at 10:30; Stop 04/16/18 at 16:29 Hydromorphone HCl (Dilaudid) 1 mg Q4H PRN IV SEVERE PAIN LEVEL 7-10 Last administered on 04/16/18at 12:34; Admin Dose 1 MG; Start 04/16/18 at 11:30 FENG ZAMAN Apr 16, 2018 14:12
--- NOTE | 2018-04-16 14:17 | PN ---
Date/Time of Note Date/Time of Note DATE: 04/16/18 TIME: 14:16 Objective Vitals Vital Signs Date Temp Pulse Resp B/P (MAP) Pulse Ox O2 O2 Flow FiO2 Time Delivery Rate 04/16/18 146 12:30 04/16/18 Room Air 12:19 04/16/18 98.1 16 112/74 97 11:24 (87) Intake and Output 04/15/18 04/15/18 04/16/18 1515:00 23:00 07:00 IntakeIntake Total 100 ml 1200 ml 1200 ml OutputOutput Total 1200 ml 1700 ml BalanceBalance 100 ml 0 ml -500 ml Results Result Diagram: 04/16/18 0609 04/16/18 0609 Medications Medications Current Medications IV Flush (NS 3 ml) 3 ml PER PROTOCOL IV ; Start 04/13/18 at 18:00 Lorazepam (Ativan) 0.5 mg Q6H PRN IV ANXIETY Last administered on 04/16/18at 03:19; Admin Dose 0.5 MG; Start 04/13/18 at 18:00 Ondansetron HCl (Zofran Inj) 4 mg Q6H PRN IV NAUSEA AND/OR VOMITING Last ad ministered on 04/16/18at 08:57; Admin Dose 4 MG; Start 04/13/18 at 18:00 Acetaminophen (Tylenol Tab) 650 mg Q6H PRN PO PAIN LEVEL 1-3 OR FEVER; Start 04/13/18 at 18:00 Acetaminophen (Tylenol Supp) 650 mg Q6H PRN [place] PAIN LEVEL 1-3 OR FEVER; Start 04/13/18 at 18:00 Acetaminophen/ Hydrocodone Bitart ([place] (5/325)) 1 tab Q6H PRN PO PAIN LEVEL 4-6; Start 04/13/18 at 18:00 Multivitamins 10 ml/Folic Acid 1 mg/Sodium Chloride 1,010.2 ml @ 125 mls/ hr DAILY@09 IVPB Last administered on 04/16/18at 08:56; Admin Dose 125 MLS/HR; Start 04/14/18 at 09:00 Lorazepam (Ativan) 1 mg Q6H IV Last administered on 04/16/18at 11:52; Admin Dose 1 MG; Start 04/13/18 at 18:30 Pantoprazole (Protonix Iv) 40 mg BID@0600,1800 IV Last administered on 04/16/18at 05:52; Admin Dose 40 MG; Start 04/14/18 at 06:00 Miscellaneous Information (* Miscellaneous Pharmacy Order) THIAMINE IV FOR USE IN [place] ... DAILY@0900 XX ; Start 04/14/18 at 09:00 Ketorolac Tromethamine (Toradol) 30 mg Q6H PRN IV PAIN LEVEL 1-3 Last adm inistered on 04/16/18at 08:57; Admin Dose 30 MG; Start 04/13/18 at 23:00; Stop 04/16/18 at 22:59 Piperacillin Sod/ Tazobactam Sod 100 ml @ 200 mls/hr Q6 IVPB Last administered on 04/16/18at 11:53; Admin Dose 200 MLS/HR; Start 04/14/18 at 12:00 Dextrose/Sodium Chloride 1,000 ml @ 150 mls/hr Q6H40M IV Last administered on 04/16/18at 06:06; Admin Dose 150 MLS/HR; Start 04/14/18 at 21:30 Potassium Chloride 100 ml @ 50 mls/hr Q2H IVPB Last administered on 04/16/18at 12:33; Admin Dose 50 MLS/HR; Start 04/16/18 at 10:30; Stop 04/16/18 at 16:29 Hydromorphone HCl (Dilaudid) 1 mg Q4H PRN IV SEVERE PAIN LEVEL 7-10 Last administered on 04/16/18at 12:34; Admin Dose 1 MG; Start 04/16/18 at 11:30 VTE Prophylaxis Risk score (from Nsg)>0 risk: 1 SCD applied (from Nsg): Yes Lines/Catheters IV Catheter Type: Vitale in Place: Yes Cont'd vitale catheter reason: urinary retention Assessment/Plan Hospital Course subjective still with abdominal pain, also unable to urinate Objective Physical exam General: Patient is laying in bed and answers questions appropriately Mentation: Patient is alert and oriented 4, Head: Normocephalic atraumatic Eyes: EOMI, pupils reactive to light Neck: Supple, nontender, midline Respiratory: Clear to auscultation bilaterally Cardiovascular: regular rate, no obvious murmurs Gastrointestinal: Tender to palpation, bowel sounds heard. Neurological: Moves all extremities spontaneously Skin: No new skin lesions Assessment and plan Acute abdominal pain secondary to acute pancreatitis -Lipase elevated to 394 at outside facility, patient states this is just like all his other pancreatitis episodes, lipase in the 900's on arrival here. -Ultrasound gallbladder done at outside facility does not show any acute issues with abdominal pain, some gallbladder sludge but no acute cholecystitis -CT showing diffusely inflamed pancreas consistent with pancreatitis with some stranding, fatty infiltration of the liver -MRI also showing pancreatitis, no other acute issues -Prophylactic Zosyn for the stranding of the pancreas for now -N.p.o. -IV fluids -Monitor -GI on board Urinary retention -Questionable etiology, questionable enlarged prostate -Unable to urinate and bladder scan showed over 700 cc of urine -Vitale inserted -Hold off on Flomax for now as patient is n.p.o. -attempt to remove vitale today Acute alcohol intoxication -Patient has a history of withdrawal -IV Ativan for now as patient is n.p.o., scheduled and as needed Mood disorder -Continue home meds when able to tolerate p.o. Sinus tachycardia -Likely secondary to pain as well as urinary bladder distention -Has momentary episodes of tachycardia and goes back to regular rate at other times. -echo pending Disposition -Admit for alcohol withdrawal, acute alcohol intoxication as well as pancreatitis. -Monitor urine output YOSELYN SCHWARZ Apr 16, 2018 14:17
--- NOTE | 2018-04-16 17:51 | NUR ---
END OF SHIFT CURRENTLY RESTING IN BED C EYES CLOSED, PT ABLE TO CALL FOR ASSIST, MED PREVIOUSLY C DILAUDID AND TORADOL, REFUSED LAST BAG OF KCL AND DR SCHWARZ NOTIFIED, AMB TO BR C ASSIST
--- NOTE | 2018-04-16 20:26 | RADRPT ---
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 Physician: YOSELYN SCHWARZ Quality: Good Procedures: Transthoracic echocardiogram with complete 2D, M-Mode, and doppler examination. Indications: Tachycardia. 2D/M Mode Doppler Measurement Value Normal Ranges Measurement Value Normal Ranges LVIDd 2D 5.1 3.5 - 5.6 cm AV Mean [place] 0.9 m/sec LVIDs 2D 3.2 2.1 - 4.1 cm AV Mean PG 4.0 mmHg LVPWd 2D 0.9 0.6 - 1.1 cm AV Peak Amando 1.3 m/sec IVSd 2D 0.9 0.6 - 1.1 cm AV Peak PG 7.0 mmHg AoR Diam 2D 3.7 2.0 - 3.7 cm AV VTI 23.5 cm LA/Ao 2D 1 0 - 1 LVOT Mean Amando 0.8 m/sec EF 2D 65.0 50.0 - 65.0 % LVOT Mean PG 3.0 mmHg LA Dimen 2D 2.1 2.3 - 4.0 cm LVOT Peak [place] 1.2 m/sec IVC Diam 1.5 1.2 - 2.0 LVOT Peak PG 5.0 mmHg MV E Peak Amando 0.8 m/sec MV A Peak Am[place] 0.8 m/sec MV E/A 1.0 MV PHT 63.0 msec MV Decel Time 215 msec MV Decel [place] 4 MV E/A 1.0 MV PHT 63.0 msec MVA PHT 3.5 cm2 TAPSE 2.9 cm TR Peak [place] 2.6 m/sec TR Peak PG 28.0 mmHg RVSP 31.0 mmHg RA Pressure 3.0 Findings Left Ventricle: Normal left ventricular systolic function. Normal left ventricular cavity size. Normal left ventricular wall thickness. Ejection fraction is visually estimated at 55 %. Tissue Doppler/Mitral Doppler indices are within normal limits. Right Ventricle: Normal right ventricular size. Normal right ventricular systolic function. Left Atrium: The left atrium is normal in size. Right Atrium: The right atrium is normal in size. Mitral Valve: Normal appearance and function of the mitral valve with trace physiologic regurgitation. Aortic Valve: Normal appearance of the aortic valve. No significant aortic stenosis or insufficiency. Tricuspid Valve: Normal appearance and function of the tricuspid valve with trace physiologic regurgitation. Normal right ventricular systolic pressure. Estimated peak PA systolic pressure 31 mmHg. Pulmonic Valve: Normal pulmonic valve appearance. Pericardium: Normal pericardium with no significant pericardial effusion. Aorta: Normal aortic root. IVC: Normal size and normal respiratory collapse consistent with normal right atrial pressure. Conclusions Normal left ventricular systolic function. Normal left ventricular cavity size. Normal left ventricular wall thickness. Ejection fraction is visually estimated at 55 %. Tissue Doppler/Mitral Doppler indices are within normal limits. Normal appearance and function of the mitral valve with trace physiologic regurgitation. Normal appearance and function of the tricuspid valve with trace physiologic regurgitation. Normal right ventricular systolic pressure. Estimated peak PA systolic pressure 31 mmHg. Electronically Signed By: Abdi Blanco 16-Apr-2018 20:26:01 -0800 Patient Name: OLIVER BENAVIDES Study Date: 16-Apr-2018 [id number]
[2018-04-17] VITALS (9 sets, daily range): BP systolic 113–133; BP diastolic 76–87; PULSE 75–128; RESP 16–18
[2018-04-17] MEDS: PIPER-TAZO 3.375 GM IV (PMX) 100 ML IVPB SCH ×4 (00:13→17:40)
[2018-04-17] MEDS: HYDROmorphONE 1 MG/ML SYG IV PRN ×4 (00:15→12:04)
[2018-04-17] MEDS: LORAZEPAM 2 MG INJ IV SCH ×2 (00:15→06:23)
[2018-04-17] MEDS: DEXTROSE 5%-0.9% NACL 1,000 ML IV SCH ×3 (02:50→17:40)
[2018-04-17] MEDS: LORAZEPAM 2 MG INJ IV PRN ×2 (04:03→19:26)
[2018-04-17] MEDS: PANTOPRAZOLE 40 MG INJ IV SCH ×2 (06:23→17:40)
--- NOTE | 2018-04-17 06:35 | NUR ---
end of shift note: pt status unchanged, still c.o of abdomen pain, partially controlled with prn dilaudid IV and ativan, continue to monitor pt
[2018-04-17] MEDS: THIAMINE IV FOR USE IN BANANA BAG IS CURRENTLY NOT AVAILABLE FROM MANUFACTURER. XX SCH (07:56)
[2018-04-17] MEDS: MULTIVITAMINS 10 ML, FOLIC ACID 1 MG in SOD CHLORIDE 0.9% 1,000 ML IVPB SCH (07:56)
[2018-04-17] MEDS: ONDANSETRON 4 MG INJ IV PRN (07:57)
--- NOTE | 2018-04-17 09:36 | NUR ---
NURSE ASSESSMENT NOTE A/OX4, PERIODS FORGETFUL, MED FOR PAIN PER ORDER, STATES WANTS TO EAT, C/O ABD PAIN ONGOING, DEMONSTRATES USE OF CALL LIGHT, BED ALARM ENGAGED, FALL PRECAUTIONS, CONTINUE TO MONITOR
--- NOTE | 2018-04-17 10:18 | NUR ---
NURSE ASSESSMENT NOTE PT C/O ONGOING PAIN IN ABD, PERIODS FORGETFUL, PERIODS RESTING C EYES CLOSED, PERIODS AWAKE AND APPEARS MORE ANXIOUS TODAY EVIDENCED BY SHAKY HANDS, REQUESTS MORE PAIN MEDS, S/W DR SCHWARZ, CONSULT C PAIN MNGMT PENDING, CHANGES TO ATIVAN MADE, NO CHANGE TO PAIN MED AT THIS TIME, PT MADE AWARE OF ABOVE
[2018-04-17] MEDS ORDERED: HALOPERIDOL 5 MG INJ IM PRN (10:30)
[2018-04-17] MEDS ORDERED: LORAZEPAM 2 MG INJ IV SCH (12:00)
--- NOTE | 2018-04-17 12:10 | NUR ---
PAIN/ANXIETY NOTE PT MED C DILAUDID PER ORDER, APPEARS ANXIOUS, WILL START NEW IV THEN PT STATES WANTS ATIVAN, REFUSES HALDOL, FORGETFUL, ASKS THE SAME QUESTIONS OVER SOMETIMES FIVE TIMES OVER, CONTINUE TO MONITOR
--- NOTE | 2018-04-17 12:20 | NUR ---
NURSE ASSESSMENT NOTE PT STATES WANTS TO EAT, PREVIOUSLY REFUSED HALDOL BUT STATES NOW HE MAY TAKE IT, STATES ANXIETY, EDUCATED TO PRN ATIVAN, DR SCHWARZ AT BEDSIDE AND S/W PT RE PAIN MEDICATIONS AND POSSIBLE PANCREATITIS, PT EXPRESSED HIS ANXIETY TO DR SCHWARZ AND CHRONIC PAIN ISSUES
--- NOTE | 2018-04-17 12:46 | NUR ---
PAIN/ANXIETY S/W DR SCHWARZ, DR MADRID HERE AND WILL EVAL PAIN ISSUES, PT STATES WILL TAKE HALDOL FOR AGITATION, CHARGE NURSE DON AT BEDSIDE TO START NEW IV, CURRENT IV NOW LEAKING BUT PATENT C BLOOD RETURN, PT CONTINUES TO C/O PAIN IN ABD, DR SCHWARZ AWARE OF PAIN, CONTINUE TO MONITOR
--- NOTE | 2018-04-17 13:43 | CONS ---
Date/Time of Note Date/Time of Note DATE: 04/17/18 TIME: 13:36 Assessment/Plan Assessment/Plan Assessment/Plan Acute pancreatitis secondary to alcohol consumption per Dr. Jarrell medical management Pain secondary to pancreatitis Patient states that he has done well with changing his Dilaudid to 2 mg every 4 hours during prior hospitalizations. He has somatic pain which I have explained to him he will never have 100% alleviation of his pain but we will control his pain that he may get pain relief down to 3/10. Although I had to repeat this numerous times a think he understands. Alcoholism Cognitive impairment We will increase his Dilaudid follow his pain control patient will need to have frequent reorientation and so far as goals of care with control of his pain. I believe he thinks that 100% of his pain should be controlled with opioids in spite of the fact I have explained this to him I expect that we will need to continually reinforce. Result Diagram: 04/17/18 0523 04/17/18 0523 Results 24hrs Laboratory Tests Test 04/17/18 05:23 White Blood Count 3.2 #L Red Blood Count 3.22 L Hemoglobin 10.4 L Hematocrit 31.3 L Mean Corpuscular Volume 97.2 Mean Corpuscular Hemoglobin 32.3 Mean Corpuscular Hemoglobin Concent 33.2 Red Cell Distribution Width 12.6 Platelet Count 166 Mean Platelet Volume 9.1 Immature Granulocytes % 0.900 H Neutrophils % 51.3 Lymphocytes % 28.9 Monocytes % 12.1 H Eosinophils % 6.2 Basophils % 0.6 Nucleated Red Blood Cells % 0.0 Immature Granulocytes # 0.030 Neutrophils # 1.7 Lymphocytes # 0.9 Monocytes # 0.4 Eosinophils # 0.2 Basophils # 0.0 Nucleated Red Blood Cells # 0.0 Sodium Level 137 Potassium Level 3.5 Chloride Level 101 Carbon Dioxide Level 28 Anion Gap 8 Blood Urea Nitrogen 4 L Creatinine 0.55 L Est Glomerular Filtrat Rate mL/min > 60 Glucose Level 113 Calcium Level 8.6 Magnesium Level 1.9 Total Bilirubin 0.4 Direct Bilirubin 0.00 Indirect Bilirubin 0.4 Aspartate Amino Transf (AST/SGOT) 264 H Alanine Aminotransferase (ALT/SGPT) 208 H Alkaline Phosphatase 117 Total Protein 6.7 Albumin 3.6 Globulin 3.10 Albumin/Globulin Ratio 1.16 Consultation Date/Type/Reason Admit Date/Time Apr 13, 2018 at 17:31 Hx of Present Illness 7-year-old male mid [facility] with acute onset of pancreatitis. Patient states she has had 7 episodes in the past this is similar to his prior episodes. Last episode was approximately 1 year ago. Patient drinks vodka and states that he started drinking once again recently after abstaining for 4 months. And is described as periumbilical with radiation to his lumbosacral spine and bilateral flanks. Associated with nausea without vom iting without chest pain shortness of breath cough sedation or diarrhea. States he has continuous pain with peaks and troughs which he grades as a 7/10 alleviated with Dilaudid which she states only last for approximately 45 minutes. Denies diaphoresis pruritus mental cloudiness dizziness diplopia disorientation with Dilaudid. Patient has slight cognitive neurological condition that requires my repeating questions numerous times as well as repeating answers to his questions. Constitutional: no complaints, improved Eyes: no complaints ENT: no complaints Respiratory: no complaints, other (For the history of present illness) Cardiovascular: other (Refer to history of present illness) Gastrointestinal: other (Refer to history of present illness) Genitourinary: no complaints Musculoskeletal: no complaints Skin: no complaints Neurologic: no complaints Endocrine: no complaints Lymphatic: no complaints Psychological: no complaints, nl mood/affect Immunologic: no complaints Past Medical History Medications Current Medications IV Flush (NS 3 ml) 3 ml PER PROTOCOL IV ; Start 04/13/18 at 18:00 Ondansetron HCl (Zofran Inj) 4 mg Q6H PRN IV NAUSEA AND/OR VOMITING Last administered on 04/17/18at 07:57; Admin Dose 4 MG; Start 04/13/18 at 18:00 Acetaminophen (Tylenol Tab) 650 mg Q6H PRN PO PAIN LEVEL 1-3 OR FEVER; Start 04/13/18 at 18:00 Acetaminophen (Tylenol Supp) 650 mg Q6H PRN DC PAIN LEVEL 1-3 OR FEVER; Start 04/13/18 at 18:00 Acetaminophen/ Hydrocodone Bitart (Ewing (5/325)) 1 tab Q6H PRN PO PAIN LEVEL 4-6; Start 04/13/18 at 18:00 Multivitamins 10 ml/Folic Acid 1 mg/Sodium Chloride 1,010.2 ml @ 125 mls/ hr DAILY@09 IVPB Last administered on 04/17/18at 07:56; Admin Dose 125 MLS/HR; Start 04/14/18 at 09:00 Pantoprazole (Protonix Iv) 40 mg BID@0600,1800 IV Last administered on 04/17/18at 06:23; Admin Dose 40 MG; Start 04/14/18 at 06:00 Miscellaneous Information (* Miscellaneous Pharmacy Order) THIAMINE IV FOR USE IN [place] ... DAILY@0900 XX ; Start 04/14/18 at 09:00 Piperacillin Sod/ Tazobactam Sod 100 ml @ 200 mls/hr Q6 IVPB Last administered on 04/17/18at 12:03; Admin Dose 200 MLS/HR; Start 04/14/18 at 12:00 Dextrose/Sodium Chloride 1,000 ml @ 150 mls/hr Q6H40M IV Last administered on 04/16/18at 22:26; Admin Dose 150 MLS/HR; Start 04/14/18 at 21:30 Hydromorphone HCl (Dilaudid) 1 mg Q4H PRN IV SEVERE PAIN LEVEL 7-10 Last administered on 04/17/18at 12:04; Admin Dose 1 MG; Start 04/16/18 at 11:30 Lorazepam (Ativan) 0.5 mg Q4H PRN IV ANXIETY; Start 04/17/18 at 10:30 Haloperidol (Haldol) 2 mg Q6H PRN IM agitation Last administered on 04/17/18at 12:51; Admin Dose 2 MG; Start 04/17/18 at 10:30 Allergies: Coded Allergies: No Known Allergy (Unverified , 07/27/17) Past Surgical History Past Surgical Hx: no surgical history Social History Smoking Status: Current every day smoker Exam/Review of Systems Vital Signs Vitals Vital Signs Date Temp Pulse Resp B/P (MAP) Pulse Ox O2 O2 Flow FiO2 Time Delivery Rate 04/17/18 113 12:20 04/17/18 Room Air 12:09 04/17/18 97.7 18 133/87 96 11:44 (102) Intake and Output 04/16/18 04/16/18 04/17/18 1515:00 23:00 07:00 IntakeIntake Total 925 ml 1415 ml 100 ml OutputOutput Total 800 ml 515 ml BalanceBalance 925 ml 615 ml -415 ml Exam Constitutional: alert, oriented, well developed Psych: anxiety, confusion Head: normocephalic, atraumatic ENMT: nl external ears & nose, nl lips & teeth, nl nasal mucosa & septum; No mucosa pink and moist, No intubated, No tympanic membranes, No other Neck: supple, non-tender; No jvd, No bruits, No masses, No thyromegaly, No nuchal rigidity, No other Respiratory: clear to auscultation, normal air movement; No congested cough, No crackles/rales, No diminished breath sounds, No intercostal retraction, No labored breathing, No respirations, No tactile fremitus, No wheezing, No other Cardiovascular: regular rate and rhythm, nl pulses; No bruits, No diastolic murmur, No edema, No gallop, No irregular rhythm, No jugular venous distention (JVD), No murmurs/extra sounds, No rub, No systolic murmur, No S3, No S4, No other Gastrointestinal: other (Normal active bowel sounds without organomegaly masses tender all 4 quadrants without rebound or peritoneal signs) Neurological: BOOT MAKER II-XII intact, nl mental status, nl speech, nl strength Medications Medications Current Medications IV Flush (NS 3 ml) 3 ml PER PROTOCOL IV ; Start 04/13/18 at 18:00 Ondansetron HCl (Zofran Inj) 4 mg Q6H PRN IV NAUSEA AND/OR VOMITING Last administered on 04/17/18at 07:57; Admin Dose 4 MG; Start 04/13/18 at 18:00 Acetaminophen (Tylenol Tab) 650 mg Q6H PRN PO PAIN LEVEL 1-3 OR FEVER; Start 04/13/18 at 18:00 Acetaminophen (Tylenol Supp) 650 mg Q6H PRN DC PAIN LEVEL 1-3 OR FEVER; Start 04/13/18 at 18:00 Acetaminophen/ Hydrocodone Bitart (Ewing (5/325)) 1 tab Q6H PRN PO PAIN LEVEL 4-6; Start 04/13/18 at 18:00 Multivitamins 10 ml/Folic Acid 1 mg/Sodium Chloride 1,010.2 ml @ 125 mls/ hr DAILY@09 IVPB Last administered on 04/17/18at 07:56; Admin Dose 125 MLS/HR; Start 04/14/18 at 09:00 Pantoprazole (Protonix Iv) 40 mg BID@0600,1800 IV Last administered on 04/17/18 06:23; Admin Dose 40 MG; Start 04/14/18 at 06:00 Miscellaneous Information (* Miscellaneous Pharmacy Order) THIAMINE IV FOR USE IN [place] ... DAILY@0900 XX ; Start 04/14/18 at 09:00 Piperacillin Sod/ Tazobactam Sod 100 ml @ 200 mls/hr Q6 IVPB Last administered on 04/17/18at 12:03; Admin Dose 200 MLS/HR; Start 04/14/18 at 12:00 Dextrose/Sodium Chloride 1,000 ml @ 150 mls/hr Q6H40M IV Last administered on 04/16/18 22:26; Admin Dose 150 MLS/HR; Start 04/14/18 at 21:30 Hydromorphone HCl (Dilaudid) 1 mg Q4H PRN IV SEVERE PAIN LEVEL 7-10 Last administered on 04/17/18 12:04; Admin Dose 1 MG; Start 04/16/18 at 11:30 Lorazepam (Ativan) 0.5 mg Q4H PRN IV ANXIETY; Start 04/17/18 at 10:30 Haloperidol (Haldol) 2 mg Q6H PRN IM agitation Last administered on 04/17/18at 12:51; Admin Dose 2 MG; Start 04/17/18 at 10:30 SHRADDHA MADRID Apr 17, 2018 13:43
--- NOTE | 2018-04-17 13:47 | NUR ---
PAIN PT RESTING C EYES CLOSED, NO S/S PAIN, PT WHEN AWOKE STATES PAIN 10/10 TO ABD, MED C DILAUDID PER ORDER
[2018-04-17] MEDS: HYDROmorphONE 2 MG/ML SYG IV PRN ×3 (13:49→21:55)
--- NOTE | 2018-04-17 14:27 | PN ---
Date/Time of Note Date/Time of Note DATE: 04/17/18 TIME: 14:24 Objective Vitals Vital Signs Date Temp Pulse Resp B/P (MAP) Pulse Ox O2 O2 Flow FiO2 Time Delivery Rate 04/17/18 113 12:20 04/17/18 Room Air 12:09 04/17/18 97.7 18 133/87 96 11:44 (102) Intake and Output 04/16/18 04/16/18 04/17/18 1515:00 23:00 07:00 IntakeIntake Total 925 ml 1415 ml 100 ml OutputOutput Total 800 ml 515 ml BalanceBalance 925 ml 615 ml -415 ml Results Result Diagram: 04/17/1852204/17/18522 Medications Medications Current Medications IV Flush (NS 3 ml) 3 ml PER PROTOCOL IV ; Start 04/13/18 at 18:00 Ondansetron HCl (Zofran Inj) 4 mg Q6H PRN IV NAUSEA AND/OR VOMITING Last administered on 04/17/18at 07:57; Admin Dose 4 MG; Start 04/13/18 at 18:00 Acetaminophen (Tylenol Tab) 650 mg Q6H PRN PO PAIN LEVEL 1-3 OR FEVER; Start 04/13/18 at 18:00 Acetaminophen (Tylenol Supp) 650 mg Q6H PRN [place] PAIN LEVEL 1-3 OR FEVER; Start 04/13/18 at 18:00 Multivitamins 10 ml/Folic Acid 1 mg/Sodium Chloride 1,010.2 ml @ 125 mls/ hr DAILY@09 IVPB Last administered on 04/17/18at 07:56; Admin Dose 125 MLS/HR; Start 04/14/18 at 09:00 Pantoprazole (Protonix Iv) 40 mg BID@0600,1800 IV Last administered on 04/17/18at 06:23; Admin Dose 40 MG; Start 04/14/18 at 06:00 Miscellaneous Information (* Miscellaneous Pharmacy Order) THIAMINE IV FOR USE IN [place] ... DAILY@0900 XX ; Start 04/14/18 at 09:00 Piperacillin Sod/ Tazobactam Sod 100 ml @ 200 mls/hr Q6 IVPB Last administered on 04/17/18at 12:03; Admin Dose 200 MLS/HR; Start 04/14/18 at 12:00 Dextrose/Sodium Chloride 1,000 ml @ 150 mls/hr Q6H40M IV Last administered on 04/16/18at 22:26; Admin Dose 150 MLS/HR; Start 04/14/18 at 21:30 Lorazepam (Ativan) 0.5 mg Q4H PRN IV ANXIETY; Start 04/17/18 at 10:30 Haloperidol (Haldol) 2 mg Q6H PRN IM agitation Last administered on 04/17/18at 12:51; Admin Dose 2 MG; Start 04/17/18 at 10:30 Hydromorphone HCl (Dilaudid) 2 mg Q4H PRN IV MODERATE TO SEVERE PAIN Last administered on 04/17/18at 13:49; Admin Dose 2 MG; Start 04/17/18 at 14:00 VTE Prophylaxis Risk score (from Ns)>0 risk: 1 SCD applied (from [facility] [place]): Yes Lines/Catheters IV Catheter Type: López in Place: No Assessment/Plan Hospital Course subjective still with abdominal pain Objective Physical exam General: Patient is laying in bed and answers questions appropriately Mentation: Patient is alert and oriented 4, Head: Normocephalic atraumatic Eyes: EOMI, pupils reactive to light Neck: Supple, nontender, midline Respiratory: Clear to auscultation bilaterally Cardiovascular: regular rate, no obvious murmurs Gastrointestinal: mild tenderness to palpation, bowel sounds heard. Neurological: Moves all extremities spontaneously Skin: No new skin lesions Assessment and plan Acute abdominal pain secondary to acute pancreatitis -Lipase elevated to 394 at outside facility, patient states this is just like all his other pancreatitis episodes, lipase in the 900's on arrival here. -Ultrasound gallbladder done at outside facility does not show any acute issues with abdominal pain, some gallbladder sludge but no acute cholecystitis -CT showing diffusely inflamed pancreas consistent with pancreatitis with some stranding, fatty infiltration of the liver -MRI also showing pancreatitis, no other acute issues -Prophylactic Zosyn for the stranding of the pancreas for now -N.p.o. -IV fluids -Monitor -GI on board -Patient states that his pain is worse today, however physical exam does not reflect the fact that he is in more pain actually he does not even squirm a little bit when I pushed on his stomach, patient does not necessarily exhibit drug-seeking behavior however will get pain management on board to help manage his pain medication. A CT of the abdomen and pelvis with IV contrast will also be ordered. Urinary retention -López removed, patient able to void, monitor Acute alcohol intoxication -Patient has a history of withdrawal -IV Ativan as needed Memory issues -Patient is alert and oriented however appears to be needing reorientation especially regarding medications and what our plan is, concerned that after years and years of drinking it has affected his memory. Mood disorder -Continue home meds when able to tolerate p.o. Sinus tachycardia -Likely secondary to pain as well as urinary bladder distention -Has momentary episodes of tachycardia and goes back to regular rate at other times. -echo noted Disposition -CT abdomen pelvis with contrast pending YOSELYN SCHWARZ Apr 17, 2018 14:27
--- NOTE | 2018-04-17 15:20 | PN ---
Date/Time of Note Date/Time of Note DATE: 04/17/18 TIME: 15:14 Assessment/Plan VTE Prophylaxis Risk score (from Ns)>0 risk: 1 SCD applied (from Ns): Yes Pharmacological prophylaxis: heparin, other Lines/Catheters IV Catheter Type (from Nrsg): Urinary Cath still in place: No Assessment/Plan Assessment/Plan Assessment: Recurrent pancreatitis, ETOH induced Elevated liver enzymes -CT with contrast shows no focal mass or dilatation of the biliary tree. -MRCP- neg for choledocholithiasis Normocytic anemia Alcohol-induced fatty liver-DF -8.7- treatment not required Alcohol abuse Plan: Continue n.p.o. except meds consider restarting psych meds IVF Pain management IgG -pending Autoimmune panel -pending Monitor LFTs Patient seen in collaboration with Dr. Graham/Mini Subjective: Course reviewed with nursing staff Patient interviewed and examined All labs, imaging and other results reviewed The patient continues having 10 out of 10 upper abdominal pain radiating to the back Pain goes down to 8 out of 10 with pain medication Will continue n.p.o. status and IV hydration. We will check lipase/amylase tomorrow. LFTs are trending down. Continue observation. PHYSICAL EXAMINATION: GENERAL: Alert & oriented x 3 SKIN: No lesions, EYES: Pupils, dilated, reactive to light, no discharge. CHEST: Inspection within normal limits. CARDIOVASCULAR: Heart: Regular rate and rhythm RESPIRATORY: Lungs clear to auscultation GASTROINTESTINAL AND LIVER: Abdomen: Soft, upper abd pain 10/10 radiating to the back, non-distended, no hernias, no masses, no organomegaly, no ascites, no guarding, no rebound tenderness, normoactive bowel sounds. Rectal: Deferred. GENITOURINARY:Not examined EXTREMITIES: No cyanosis, clubbing or edema. Result Diagram: 04/17/18 0523 04/17/18 0523 Results 24hrs Laboratory Tests Test 04/17/18 05:23 White Blood Count 3.2 #L Red Blood Count 3.22 L Hemoglobin 10.4 L Hematocrit 31.3 L Mean Corpuscular Volume 97.2 Mean Corpuscular Hemoglobin 32.3 Mean Corpuscular Hemoglobin Concent 33.2 Red Cell Distribution Width 12.6 Platelet Count 166 Mean Platelet Volume 9.1 Immature Granulocytes % 0.900 H Neutrophils % 51.3 Lymphocytes % 28.9 Monocytes % 12.1 H Eosinophils % 6.2 Basophils % 0.6 Nucleated Red Blood Cells % 0.0 Immature Granulocytes # 0.030 Neutrophils # 1.7 Lymphocytes # 0.9 Monocytes # 0.4 Eosinophils # 0.2 Basophils # 0.0 Nucleated Red Blood Cells # 0.0 Sodium Level 137 Potassium Level 3.5 Chloride Level 101 Carbon Dioxide Level 28 Anion Gap 8 Blood Urea Nitrogen 4 L Creatinine 0.55 L Est Glomerular Filtrat Rate mL/min > 60 Glucose Level 113 Calcium Level 8.6 Magnesium Level 1.9 Total Bilirubin 0.4 Direct Bilirubin 0.00 Indirect Bilirubin 0.4 Aspartate Amino Transf (AST/SGOT) 264 H Alanine Aminotransferase (ALT/SGPT) 208 H Alkaline Phosphatase 117 Total Protein 6.7 Albumin 3.6 Globulin 3.10 Albumin/Globulin Ratio 1.16 CC: ORLIN GRAHAM MD ; Exam/Review of Systems Vital Signs Vitals Vital Signs Date Temp Pulse Resp B/P (MAP) Pulse Ox O2 O2 Flow FiO2 Time Delivery Rate 04/17/18 113 12:20 04/17/18 Room Air 12:09 04/17/18 97.7 18 133/87 96 11:44 (102) Intake and Output 04/16/18 04/16/18 04/17/18 1515:00 23:00 07:00 IntakeIntake Total 925 ml 1415 ml 100 ml OutputOutput Total 800 ml 515 ml BalanceBalance 925 ml 615 ml -415 ml Medications Medications Current Medications IV Flush (NS 3 ml) 3 ml PER PROTOCOL IV ; Start 04/13/18 at 18:00 Ondansetron HCl (Zofran Inj) 4 mg Q6H PRN IV NAUSEA AND/OR VOMITING Last administered on 04/17/18at 07:57; Admin Dose 4 MG; Start 04/13/18 at 18:00 Acetaminophen (Tylenol Tab) 650 mg Q6H PRN PO PAIN LEVEL 1-3 OR FEVER; Start 04/13/18 at 18:00 Acetaminophen (Tylenol Supp) 650 mg Q6H PRN [place] PAIN LEVEL 1-3 OR FEVER; Start 04/13/18 at 18:00 Multivitamins 10 ml/Folic Acid 1 mg/Sodium Chloride 1,010.2 ml @ 125 mls/ hr DAILY@09 IVPB Last administered on 04/17/18at 07:56; Admin Dose 125 MLS/HR; Start 04/14/18 at 09:00 Pantoprazole (Protonix Iv) 40 mg BID@0600,1800 IV Last administered on at 06:23; Admin Dose 40 MG; Start 04/14/18 at 06:00 Miscellaneous Information (* Miscellaneous Pharmacy Order) THIAMINE IV FOR USE IN [place] ... DAILY@0900 XX ; Start 04/14/18 at 09:00 Piperacillin Sod/ Tazobactam Sod 100 ml @ 200 mls/hr Q6 IVPB Last administered on 04/17/18at 12:03; Admin Dose 200 MLS/HR; Start 04/14/18 at 12:00 Dextrose/Sodium Chloride 1,000 ml @ 150 mls/hr Q6H40M IV Last administered on 04/16/18at 22:26; Admin Dose 150 MLS/HR; Start 04/14/18 at 21:30 Lorazepam (Ativan) 0.5 mg Q4H PRN IV ANXIETY; Start 04/17/18 at 10:30 Haloperidol (Haldol) 2 mg Q6H PRN IM agitation Last administered on 04/17/18at 12:51; Admin Dose 2 MG; Start 04/17/18 at 10:30 Hydromorphone HCl (Dilaudid) 2 mg Q4H PRN IV MODERATE TO SEVERE PAIN Last administered on 04/17/18at 13:49; Admin Dose 2 MG; Start 04/17/18 at 14:00 JOSE ELLIOTT NP Apr 17, 2018 15:20
[2018-04-17] MEDS ORDERED: SOD CHLORIDE 0.9% 100 ML ONE (16:29)
[2018-04-17] MEDS ORDERED: IOHEXOL 300MG/ML 150 ML BTL ONE (16:29)
--- NOTE | 2018-04-17 18:30 | NUR ---
END OF SHIFT MED FOR PAIN PER ORDERS, DEMONSTRATES ABILITY TO CALL FOR ASSIST C CALL LIGHT, BED ALARM ENGAGED, FORGETFUL, REPEATS QUESTIONS OVER EVEN C REPEAT EDUCATION AND REINFORCEMENT
[2018-04-18] VITALS (12 sets, daily range): BP systolic 116–138; BP diastolic 73–89; PULSE 75–105; RESP 18–20
[2018-04-18] MEDS: DEXTROSE 5%-0.9% NACL 1,000 ML IV SCH ×4 (00:09→18:12)
[2018-04-18] MEDS: PIPER-TAZO 3.375 GM IV (PMX) 100 ML IVPB SCH ×2 (00:18→05:54)
[2018-04-18] MEDS: HYDROmorphONE 2 MG/ML SYG IV PRN ×5 (02:18→23:25)
[2018-04-18] MEDS: LORAZEPAM 2 MG INJ IV PRN ×3 (02:23→22:12)
[2018-04-18] MEDS: PANTOPRAZOLE 40 MG INJ IV SCH ×2 (05:54→17:49)
--- NOTE | 2018-04-18 06:45 | NUR ---
Pt AAOX4 , ambulatory w/ assist, uses urinal, on pain med - Dilaudid 2 mg IVP & Ativan 0.5 mg q4 ivp, , NPO IVF D5NS at 150, Vital signs stable, Will endorsed to oncoming shift.
[2018-04-18] MEDS: THIAMINE IV FOR USE IN BANANA BAG IS CURRENTLY NOT AVAILABLE FROM MANUFACTURER. XX SCH (08:11)
[2018-04-18] MEDS: MULTIVITAMINS 10 ML, FOLIC ACID 1 MG in SOD CHLORIDE 0.9% 1,000 ML IVPB SCH (08:17)
[2018-04-18] MEDS ORDERED: NA PHOSPHATE/BIPHOS 133 ML ENEMA PR ONE (09:30)
[2018-04-18] MEDS ORDERED: HYDROmorphONE 1 MG/ML SYG IV PRN (10:00)
[2018-04-18] MEDS: POTASSIUM CHLORIDE 100 ML IVPB SCH ×3 (10:29→15:51)
--- NOTE | 2018-04-18 12:10 | NUR ---
Report given by NITESH Pereira to continue care for patient.
--- NOTE | 2018-04-18 12:26 | PN ---
Date/Time of Note Date/Time of Note DATE: 04/18/18 TIME: 12:23 Objective Vitals Vital Signs Date Temp Pulse Resp B/P (MAP) Pulse Ox O2 O2 Flow FiO2 Time Delivery Rate 04/18/18 98.0 101 20 128/74 94 Room Air 11:57 (92) Intake and Output 04/17/18 04/17/18 04/18/18 1515:00 23:00 07:00 IntakeIntake Total 850 ml 600 ml OutputOutput Total 1500 ml BalanceBalance 850 ml -900 ml Results Result Diagram: 04/18/1862604/18/18626 Medications Medications Current Medications IV Flush (NS 3 ml) 3 ml PER PROTOCOL IV ; Start 04/13/18 at 18:00 Ondansetron HCl (Zofran Inj) 4 mg Q6H PRN IV NAUSEA AND/OR VOMITING Last administered on 04/17/18at 07:57; Admin Dose 4 MG; Start 04/13/18 at 18:00 Acetaminophen (Tylenol Tab) 650 mg Q6H PRN PO PAIN LEVEL 1-3 OR FEVER; Start 04/13/18 at 18:00 Acetaminophen (Tylenol Supp) 650 mg Q6H PRN [place] PAIN LEVEL 1-3 OR FEVER; Start 04/13/18 at 18:00 Multivitamins 10 ml/Folic Acid 1 mg/Sodium Chloride 1,010.2 ml @ 125 mls/ hr DAILY@09 IVPB Last administered on 04/18/18at 08:17; Admin Dose 125 MLS/HR; Start 04/14/18 at 09:00 Pantoprazole (Protonix Iv) 40 mg BID@0600,1800 IV Last administered on 04/18/18at 05:54; Admin Dose 40 MG; Start 04/14/18 at 06:00 Miscellaneous Information (* Miscellaneous Pharmacy Order) THIAMINE IV FOR USE IN [place] ... DAILY@0900 XX ; Start 04/14/18 at 09:00 Piperacillin Sod/ Tazobactam Sod 100 ml @ 200 mls/hr Q6 IVPB Last administered on 04/18/18at 05:54; Admin Dose 200 MLS/HR; Start 04/14/18 at 12:00 Dextrose/Sodium Chloride 1,000 ml @ 150 mls/hr Q6H40M IV Last administered on 1/19/19at 00:09; Admin Dose 150 MLS/HR; Start 04/14/18 at 21:30 Lorazepam (Ativan) 0.5 mg Q4H PRN IV ANXIETY Last administered on 04/18/18 08:17; Admin Dose 0.5 MG; Start 04/17/18 at 10:30 Haloperidol (Haldol) 2 mg Q6H PRN IM agitation Last administered on 04/17/18 12:51; Admin Dose 2 MG; Start 04/17/18 at 10:30 Potassium Chloride 100 ml @ 50 mls/hr Q2H IVPB Last administered on 04/18/18 10:29; Admin Dose 50 MLS/HR; Start 04/18/18 at 10:00; Stop 04/18/18 at 15:59 Hydromorphone HCl (Dilaudid) 1 mg Q4H PRN IV MODERATE TO SEVERE PAIN Last administered on 04/18/18 10:15; Admin Dose 1 MG; Start 04/18/18 at 10:00 VTE Prophylaxis Risk score (from Ns)>0 risk: 2 SCD applied (from Ns): Yes Lines/Catheters IV Catheter Type: López in Place: No Assessment/Plan Hospital Course subjective still with abdominal pain, but not epigastric, lower quadrant Objective Physical exam General: Patient is laying in bed and answers questions appropriately Mentation: Patient is alert and oriented 4, Head: Normocephalic atraumatic Eyes: EOMI, pupils reactive to light Neck: Supple, nontender, midline Respiratory: Clear to auscultation bilaterally Cardiovascular: regular rate, no obvious murmurs Gastrointestinal: mild tenderness to palpation in lower quadrant, bowel sounds heard. Neurological: Moves all extremities spontaneously Skin: No new skin lesions Assessment and plan Acute abdominal pain secondary to acute pancreatitis -Lipase elevated to 394 at outside facility, patient states this is just like all his other pancreatitis episodes, lipase in the 900's on arrival here. -Ultrasound gallbladder done at outside facility does not show any acute issues with abdominal pain, some gallbladder sludge but no acute cholecystitis -CT showing diffusely inflamed pancreas consistent with pancreatitis with some stranding, fatty infiltration of the liver, repeat CT with contrast done yesterday shows resolution of pancreatitis -MRI noted -N.p.o. -IV fluids -Monitor -GI on board -It appears patient's pancreatitis is resolved with no epigastric tenderness as well as CT evidence with contrast done yesterday. However patient still does have lower quadrant pain in the lower right and lower left that is very general. I do not believe this is pancreatitis related this may be secondary to other bowel issues including possible mild constipation, will defer to GI whether or not patient is okay to start clears however at this time . I feel patient's pancreatitis is resolving, will also order enema in order to evaluate if cons tipation is also a cause of patient's lower quadrant pain as CT does not show any acute issues. Urinary retention -López removed, patient able to void, monitor Acute alcohol intoxication -Patient has a history of withdrawal -IV Ativan as needed Memory issues -Patient is alert and oriented however appears to be needing reorientation especially regarding medications and what our plan is, concerned that after years and years of drinking it has affected his memory. Mood disorder -Continue home meds when able to tolerate p.o. Sinus tachycardia -Likely secondary to pain -Has momentary episodes of tachycardia and goes back to regular rate at other times. -echo noted Disposition -GI recommendations appreciated, patient likely now has resolved pancreatitis, will need further workup for continued lower abdominal pain, CT with contrast of the abdomen and pelvis is unrevealing For other causes of lower abdominal pain. YOSELYN SCHWARZ Apr 18, 2018 12:26
--- NOTE | 2018-04-18 13:45 | PN ---
Date/Time of Note Date/Time of Note DATE: 04/18/18 TIME: 13:42 Assessment/Plan VTE Prophylaxis Risk score (from Ns)>0 risk: 2 SCD applied (from Ns): Yes Pharmacological prophylaxis: other (scds) Lines/Catheters IV Catheter Type (from Nrs): Urinary Cath still in place: No Assessment/Plan Hospital Course Assessment/Plan Assessment: Recurrent pancreatitis, ETOH induced Elevated liver enzymes- trending down -CT with contrast shows no focal mass or dilatation of the biliary tree. -MRCP- neg for choledocholithiasis Normocytic anemia Alcohol-induced fatty liver-DF -8.7- treatment not required Alcohol abuse Plan: Lipase- trending down, amylase normal CT- resolution of pancreatitis- however patient continues to c/o upper abd pain- consider gastric course- if picture of pancreatitis continues to improve and pt continues to have upper abd pain- will consider EGD Consider reducing pain meds or changing to PO- if pain improves, start cl liq diet in am Pain management IgG -pending Patient seen in collaboration with Dr. Graham/Mini Subjective: Course reviewed with nursing staff Patient interviewed and examined All labs, imaging and other results reviewed Pt states he feels about the same, he continues to c/o upper abd pain Discussed labs results and Ct results. Pt despite improvement he states he continues to have pain. Continue current regimen- if pain improves start cl liquid diet in am. PHYSICAL EXAMINATION: GENERAL: Alert & oriented x 3 SKIN: No lesions, EYES: Pupils, dilated, reactive to light, no discharge. CHEST: Inspection within normal limits. CARDIOVASCULAR: Heart: Regular rate and rhythm RESPIRATORY: Lungs clear to auscultation GASTROINTESTINAL AND LIVER: Abdomen: Soft, upper abd pain 8/10 radiating to the back, non-distended, no hernias, no masses, no organomegaly, no ascites, no guarding, no rebound tenderness, normoactive bowel sounds. Rectal: Deferred. GENITOURINARY:Not examined EXTREMITIES: No cyanosis, clubbing or edema. Result Diagram: 04/18/1862604/18/1827 Results 24hrs Laboratory Tests Test 04/18/18 06:27 White Blood Count 3.9 #L Red Blood Count 3.25 L Hemoglobin 10.6 L Hematocrit 31.6 L Mean Corpuscular Volume 97.2 Mean Corpuscular Hemoglobin 32.6 Mean Corpuscular Hemoglobin Concent 33.5 Red Cell Distribution Width 13.0 Platelet Count 190 Mean Platelet Volume 8.9 Immature Granulocytes % 0.800 H Neutrophils % 50.4 Lymphocytes % 31.4 Monocytes % 12.8 H Eosinophils % 4.3 Basophils % 0.3 Nucleated Red Blood Cells % 0.0 Immature Granulocytes # 0.030 Neutrophils # 2.0 Lymphocytes # 1.2 Monocytes # 0.5 Eosinophils # 0.2 Basophils # 0.0 Nucleated Red Blood Cells # 0.0 Sodium Level 138 Potassium Level 3.2 L Chloride Level 98 Carbon Dioxide Level 32 H Anion Gap 8 Blood Urea Nitrogen 3 L Creatinine 0.57 L Est Glomerular Filtrat Rate mL/min > 60 Glucose Level 99 Calcium Level 8.7 Magnesium Level 1.8 Total Bilirubin 0.2 Direct Bilirubin 0.00 Indirect Bilirubin 0.2 Aspartate Amino Transf (AST/SGOT) 171 H Alanine Aminotransferase (ALT/SGPT) 190 H Alkaline Phosphatase 93 Total Protein 7.0 Albumin 3.8 Globulin 3.20 Albumin/Globulin Ratio 1.18 Amylase Level 34 Lipase 409 H Exam/Review of Systems Vital Signs Vitals Vital Signs Date Temp Pulse Resp B/P (MAP) Pulse Ox O2 O2 Flow FiO2 Time Delivery Rate 04/18/18 85 13:21 04/18/18 98.0 20 128/74 94 Room Air 11:57 (92) Intake and Output 04/17/18 04/17/18 04/18/18 1414:59 22:59 06:59 IntakeIntake Total 850 ml 600 ml OutputOutput Total 1500 ml BalanceBalance 850 ml -900 ml Medications Medications Current Medications IV Flush (NS 3 ml) 3 ml PER PROTOCOL IV ; Start 04/13/18 at 18:00 Ondansetron HCl (Zofran Inj) 4 mg Q6H PRN IV NAUSEA AND/OR VOMITING Last administered on 04/17/18at 07:57; Admin Dose 4 MG; Start 04/13/18 at 18:00 Acetaminophen (Tylenol Tab) 650 mg Q6H PRN PO PAIN LEVEL 1-3 OR FEVER; Start 04/13/18 at 18:00 Acetaminophen (Tylenol Supp) 650 mg Q6H PRN [place] PAIN LEVEL 1-3 OR FEVER; Start 04/13/18 at 18:00 Multivitamins 10 ml/Folic Acid 1 mg/Sodium Chloride 1,010.2 ml @ 125 mls/ hr DAILY@09 IVPB Last administered on 04/18/18 08:17; Admin Dose 125 MLS/HR; Start 04/14/18 at 09:00 Pantoprazole (Protonix Iv) 40 mg BID@0600,1800 IV Last administered on 04/18/18 05:54; Admin Dose 40 MG; Start 04/14/18 at 06:00 Miscellaneous Information (* Miscellaneous Pharmacy Order) THIAMINE IV FOR USE IN BANANA ... DAILY@0900 XX ; Start 04/14/18 at 09:00 Dextrose/Sodium Chloride 1,000 ml @ 150 mls/hr Q6H40M IV Last administered on 04/18/18 00:09; Admin Dose 150 MLS/HR; Start 04/14/18 at 21:30 Lorazepam (Ativan) 0.5 mg Q4H PRN IV ANXIETY Last administered on 04/18/18 08:17; Admin Dose 0.5 MG; Start 04/17/18 at 10:30 Haloperidol (Haldol) 2 mg Q6H PRN IM agitation Last administered on 04/17/18 12:51; Admin Dose 2 MG; Start 04/17/18 at 10:30 Potassium Chloride 100 ml @ 50 mls/hr Q2H IVPB Last administered on 04/18/18 13:05; Admin Dose 50 MLS/HR; Start 04/18/18 at 10:00; Stop 04/18/18 at 15:59 Hydromorphone HCl (Dilaudid) 1 mg Q4H PRN IV MODERATE TO SEVERE PAIN Last administered on 04/18/18 10:15; Admin Dose 1 MG; Start 04/18/18 at 10:00 FENG ZAMAN Apr 18, 2018 13:45
--- NOTE | 2018-04-18 16:14 | NUR ---
Bladder scan done after urination -61cc, text Dr. Jarrell.
--- NOTE | 2018-04-18 18:52 | NUR ---
EOSS: Patient remained NPO with IV fluids on going x1 one bag of banana bag daily @125cc/hr alternate with D5NS@150cc/hr. Medicated for pain as needed and ordered. Assist to the bathroom. Call light within reach, bed alarm in place at all times. KCL given as ordered K-3.2. Will continue to monitor.
[2018-04-19] VITALS (11 sets, daily range): BP systolic 108–118; BP diastolic 73–78; PULSE 72–141; RESP 20
[2018-04-19] MEDS: DEXTROSE 5%-0.9% NACL 1,000 ML IV SCH ×3 (01:02→14:50)
[2018-04-19] MEDS: HYDROmorphONE 2 MG/ML SYG IV PRN ×3 (03:20→11:32)
[2018-04-19] MEDS: PANTOPRAZOLE 40 MG INJ IV SCH ×2 (05:51→17:48)
[2018-04-19] MEDS: THIAMINE IV FOR USE IN BANANA BAG IS CURRENTLY NOT AVAILABLE FROM MANUFACTURER. XX SCH (08:11)
[2018-04-19] MEDS: MULTIVITAMINS 10 ML, FOLIC ACID 1 MG in SOD CHLORIDE 0.9% 1,000 ML IVPB SCH (08:12)
[2018-04-19] MEDS: LORAZEPAM 2 MG INJ IV PRN (12:47)
--- NOTE | 2018-04-19 13:48 | PN ---
Date/Time of Note Date/Time of Note DATE: 04/19/18 TIME: 13:44 Assessment/Plan VTE Prophylaxis Risk score (from Nsg)>0 risk: 2 SCD applied (from Nsg): Yes Pharmacological prophylaxis: other (scds) Lines/Catheters IV Catheter Type (from Nrsg): Peripheral IV Urinary Cath still in place: No Assessment/Plan Hospital Course Assessment/Plan Assessment: Recurrent pancreatitis, ETOH induced Elevated liver enzymes- trending down -CT with contrast shows no focal mass or dilatation of the biliary tree. -MRCP- neg for choledocholithiasis Normocytic anemia Alcohol-induced fatty liver-DF -8.7- treatment not required Alcohol abuse Plan: Pt continue to c/o upper abd pain- however pt does express pain to other providers and nurses in other area, e.g. lower abd- or flank. unclear if this is 2/2 to drug seeking behavior vs true abd pain. We will start clear liquid diet today and continue to monitor Recommend decreasing IV pain medication if able to do so. IgG4 -WNL Encourage ambulation Patient seen in collaboration with Dr. Graham/Mini Subjective: Course reviewed with nursing staff Patient interviewed and examined All labs, imaging and other results reviewed Pt c/o upper abd pain to me during assessment however according to notes to c/o lower abd pain to other providers. He had x1 BM, Since yesterday. Again concerns for drug seeking behavior vs true pain. We will continue PPI and monitor labs Will consider EGD in near future if pain persists without evidence of pancreatit is PHYSICAL EXAMINATION: GENERAL: Alert & oriented x 3 SKIN: No lesions, EYES: Pupils, dilated, reactive to light, no discharge. CHEST: Inspection within normal limits. CARDIOVASCULAR: Heart: Regular rate and rhythm RESPIRATORY: Lungs clear to auscultation GASTROINTESTINAL AND LIVER: Abdomen: Soft, upper abd pain, non-distended, no hernias, no masses, no organomegaly, no ascites, no guarding, no rebound tenderness, normoactive bowel sounds. Rectal: Deferred. GENITOURINARY:Not examined EXTREMITIES: No cyanosis, clubbing or edema. Result Diagram: 04/19/18 0547 04/19/18 0546 Results 24hrs Laboratory Tests Test 04/19/18 05:46 04/19/18 05:47 Sodium Level 139 Potassium Level 3.3 L Chloride Level 99 Carbon Dioxide Level 31 Anion Gap 9 Blood Urea Nitrogen 3 L Creatinine 0.55 L Est Glomerular Filtrat Rate mL/min > 60 Glucose Level 127 Calcium Level 8.8 Phosphorus Level 3.8 Magnesium Level 1.9 White Blood Count 4.7 #L Red Blood Count 3.34 L Hemoglobin 10.9 L Hematocrit 32.7 L Mean Corpuscular Volume 97.9 Mean Corpuscular Hemoglobin 32.6 Mean Corpuscular Hemoglobin Concent 33.3 Red Cell Distribution Width 12.9 Platelet Count 230 # Mean Platelet Volume 8.7 Immature Granulocytes % 0.600 H Neutrophils % 55.1 Lymphocytes % 28.1 Monocytes % 12.4 H Eosinophils % 3.6 Basophils % 0.2 Nucleated Red Blood Cells % 0.0 Immature Granulocytes # 0.030 Neutrophils # 2.6 Lymphocytes # 1.3 Monocytes # 0.6 Eosinophils # 0.2 Basophils # 0.0 Nucleated Red Blood Cells # 0.0 Exam/Review of Systems Vital Signs Vitals Vital Signs Date Temp Pulse Resp B/P (MAP) Pulse Ox O2 O2 Flow FiO2 Time Delivery Rate 04/19/18 81 12:20 04/19/18 98.6 20 118/77 96 Room Air 11:21 (91) Intake and Output 04/18/18 04/18/18 04/19/18 1515:00 23:00 07:00 IntakeIntake Total 200 ml 1210.2 ml OutputOutput Total 400 ml 850 ml 1000 ml BalanceBalance -200 ml 360.2 ml -1000 ml Medications Medications Current Medications IV Flush (NS 3 ml) 3 ml PER PROTOCOL IV ; Start 04/13/18 at 18:00 Ondansetron HCl (Zofran Inj) 4 mg Q6H PRN IV NAUSEA AND/OR VOMITING Last administered on 04/17/18at 07:57; Admin Dose 4 MG; Start 04/13/18 at 18:00 Acetaminophen (Tylenol Tab) 650 mg Q6H PRN PO PAIN LEVEL 1-3 OR FEVER; Start 04/13/18 at 18:00 Acetaminophen (Tylenol Supp) 650 mg Q6H PRN [place] PAIN LEVEL 1-3 OR FEVER; Start 04/13/18 at 18:00 Multivitamins 10 ml/Folic Acid 1 mg/Sodium Chloride 1,010.2 ml @ 125 mls/ hr DAILY@09 IVPB Last administered on 04/19/18at 08:12; Admin Dose 125 MLS/HR; Start 04/14/18 at 09:00 Pantoprazole (Protonix Iv) 40 mg BID@0600,1800 IV Last administered on 04/19/18 05:51; Admin Dose 40 MG; Start 04/14/18 at 06:00 Miscellaneous Information (* Miscellaneous Pharmacy Order) THIAMINE IV FOR USE IN [place] ... DAILY@0900 XX ; Start 04/14/18 at 09:00 Dextrose/Sodium Chloride 1,000 ml @ 150 mls/hr Q6H40M IV Last administered on 04/19/18 07:13; Admin Dose 150 MLS/HR; Start 04/14/18 at 21:30 Lorazepam (Ativan) 0.5 mg Q4H PRN IV ANXIETY Last administered on 04/19/18 12:47; Admin Dose 0.5 MG; Start 04/17/18 at 10:30 Haloperidol (Haldol) 2 mg Q6H PRN IM agitation Last administered on 04/17/18 12:51; Admin Dose 2 MG; Start 04/17/18 at 10:30 Hydromorphone HCl (Dilaudid) 2 mg Q4H PRN IV MODERATE TO SEVERE PAIN Last a dministered on 04/19/18 11:32; Admin Dose 2 MG; Start 04/18/18 at 14:30 FENG ZAMAN Apr 19, 2018 13:48
[2018-04-19] MEDS ORDERED: POTASSIUM CHLORIDE (SR) 20 MEQ TAB PO STA (14:13)
--- NOTE | 2018-04-19 15:05 | PN ---
Date/Time of Note Date/Time of Note DATE: 04/19/18 TIME: 15:04 Assessment/Plan VTE Prophylaxis Risk score (from Nsg)>0 risk: 2 SCD applied (from Nsg): Yes Pharmacological prophylaxis: heparin Lines/Catheters IV Catheter Type (from Nrsg): Peripheral IV Urinary Cath still in place: No Assessment/Plan Hospital Course 37 yo male with etoh pancreatitis: - IVF, advanced diet - Pain control - Likely dc tomorrow Result Diagram: 04/19/18 0547 04/19/18 0546 Results 24hrs Laboratory Tests Test 04/19/18 05:46 04/19/18 05:47 Sodium Level 139 Potassium Level 3.3 L Chloride Level 99 Carbon Dioxide Level 31 Anion Gap 9 Blood Urea Nitrogen 3 L Creatinine 0.55 L Est Glomerular Filtrat Rate mL/min > 60 Glucose Level 127 Calcium Level 8.8 Phosphorus Level 3.8 Magnesium Level 1.9 White Blood Count 4.7 #L Red Blood Count 3.34 L Hemoglobin 10.9 L Hematocrit 32.7 L Mean Corpuscular Volume 97.9 Mean Corpuscular Hemoglobin 32.6 Mean Corpuscular Hemoglobin Concent 33.3 Red Cell Distribution Width 12.9 Platelet Count 230 # Mean Platelet Volume 8.7 Immature Granulocytes % 0.600 H Neutrophils % 55.1 Lymphocytes % 28.1 Monocytes % 12.4 H Eosinophils % 3.6 Basophils % 0.2 Nucleated Red Blood Cells % 0.0 Immature Granulocytes # 0.030 Neutrophils # 2.6 Lymphocytes # 1.3 Monocytes # 0.6 Eosinophils # 0.2 Basophils # 0.0 Nucleated Red Blood Cells # 0.0 Subjective 24 Hr Interval Summary Free Text/Dictation Abd pain controlled Told he wont receive further IV narcotics without trial of PO first Exam/Review of Systems Vital Signs Vitals Vital Signs Date Temp Pulse Resp B/P (MAP) Pulse Ox O2 O2 Flow FiO2 Time Delivery Rate 04/19/18 81 12:20 04/19/18 98.6 20 118/77 96 Room Air 11:21 (91) Intake and Output 04/18/18 04/18/18 04/19/18 1515:00 23:00 07:00 IntakeIntake Total 200 ml 1210.2 ml OutputOutput Total 400 ml 850 ml 1000 ml BalanceBalance -200 ml 360.2 ml -1000 ml Exam Constitutional: alert, oriented, well developed Psych: no complaints, nl mood/affect Head: normocephalic, atraumatic Eyes: nl conjunctiva, EOMI, nl lids, nl sclera, PERRL ENMT: nl external ears & nose, nl lips & teeth, nl nasal mucosa & septum Neck: supple, non-tender Respiratory: clear to auscultation, normal air movement Cardiovascular: regular rate and rhythm, nl pulses Gastrointestinal: soft, nl liver, spleen, non-tender Musculoskeletal: nl extremities to inspection, nl gait and stance Extremities: normal pulses 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, nl mental status, nl speech, nl strength Skin: nl turgor; No rash or lesions Lymph: nl lymph nodes Medications Medications Current Medications IV Flush (NS 3 ml) 3 ml PER PROTOCOL IV ; Start 04/13/18 at 18:00 Ondansetron HCl (Zofran Inj) 4 mg Q6H PRN IV NAUSEA AND/OR VOMITING Last administered on 04/17/18at 07:57; Admin Dose 4 MG; Start 04/13/18 at 18:00 Acetaminophen (Tylenol Tab) 650 mg Q6H PRN PO PAIN LEVEL 1-3 OR FEVER; Start 04/13/18 at 18:00 Acetaminophen (Tylenol Supp) 650 mg Q6H PRN [place] PAIN LEVEL 1-3 OR FEVER; Start 04/13/18 at 18:00 Multivitamins 10 ml/Folic Acid 1 mg/Sodium Chloride 1,010.2 ml @ 125 mls/ hr DAILY@09 IVPB Last administered on 04/19/18at 08:12; Admin Dose 125 MLS/HR; Start 04/14/18 at 09:00 Pantoprazole (Protonix Iv) 40 mg BID@0600,1800 IV Last administered on 04/19/18at 05:51; Admin Dose 40 MG; Start 04/14/18 at 06:00 Miscellaneous Information (* Miscellaneous Pharmacy Order) THIAMINE IV FOR USE IN BA[place] ... DAILY@0900 XX ; Start 04/14/18 at 09:00 Dextrose/Sodium Chloride 1,000 ml @ 150 mls/hr Q6H40M IV Last administered on 04/19/18at 07:13; Admin Dose 150 MLS/HR; Start 04/14/18 at 21:30 Haloperidol (Haldol) 2 mg Q6H PRN IM agitation Last administered on 04/17/18at 12:51; Admin Dose 2 MG; Start 04/17/18 at 10:30 Fluoxetine HCl (Prozac) 40 mg DAILY PO ; Start 04/20/18 at 09:00 Quetiapine Fumarate (Seroquel) 300 mg HS PO ; Start 04/19/18 at 21:00 Trazodone HCl (Desyrel) 200 mg QHS PO ; Start 04/19/18 at 21:00 TATO PAINTING MD Apr 19, 2018 15:05
[2018-04-19] MEDS: OXYCODONE/ACETAMINOPHEN (5/325) TAB PO PRN ×2 (16:11→21:05)
--- NOTE | 2018-04-19 18:28 | NUR ---
EOSS: Patient is AAOx4, SR/ST on the monitor. ST (120s) when ambulating. VSS, still c/o abdominal pain radiating to back - MD made aware, pain meds administered as ordered. CLQ diet started - pt tolerating well. RN educated on pain management and weaning off IV Dilaudid. Pt verbalized understanding of teaching. Hourly rounding done, fall precautions initiated, all needs attended to. Pt is stable - will endorse to oncoming shift.
[2018-04-19] MEDS: ONDANSETRON 4 MG INJ IV PRN (19:36)
[2018-04-19] MEDS: traZODone 100 MG TAB PO SCH (21:05)
[2018-04-19] MEDS: QUETIAPINE 100 MG TAB PO SCH (21:05)
[2018-04-20] VITALS (10 sets, daily range): BP systolic 92–108; BP diastolic 54–75; PULSE 75–105; RESP 19–20
[2018-04-20] MEDS ORDERED: SOD CHLORIDE 0.9% 500 ML IV ONE ×2 (02:00→02:30)
[2018-04-20] MEDS: PANTOPRAZOLE 40 MG INJ IV SCH ×2 (05:45→18:38)
[2018-04-20] MEDS: THIAMINE IV FOR USE IN BANANA BAG IS CURRENTLY NOT AVAILABLE FROM MANUFACTURER. XX SCH (09:00)
[2018-04-20] MEDS: MULTIVITAMINS 10 ML, FOLIC ACID 1 MG in SOD CHLORIDE 0.9% 1,000 ML IVPB SCH (09:32)
[2018-04-20] MEDS: FLUOXETINE 20 MG CAP PO SCH (09:32)
[2018-04-20] MEDS: OXYCODONE/ACETAMINOPHEN (5/325) TAB PO PRN ×3 (09:40→21:07)
--- NOTE | 2018-04-20 11:43 | PN ---
Date/Time of Note Date/Time of Note DATE: 04/20/18 TIME: 11:40 Assessment/Plan VTE Prophylaxis Risk score (from Ns)>0 risk: 1 SCD applied (from Nsg): Yes Pharmacological prophylaxis: other (scds) Lines/Catheters IV Catheter Type (from Nrs): Peripheral IV Urinary Cath still in place: No Assessment/Plan Hospital Course Assessment/Plan Assessment: Recurrent pancreatitis, ETOH induced Elevated liver enzymes- trending down -CT with contrast shows no focal mass or dilatation of the biliary tree. -MRCP- neg for choledocholithiasis Normocytic anemia Alcohol-induced fatty liver-DF -8.7- treatment not required Alcohol abuse Plan: Soft diet Lipase/amylase normalized- less abd pain- well covered with po narcotics If patient can tolerate PO intake ok for d/c from GI point of view Encourage ambulation Patient seen in collaboration with Dr. Graham/Mini Subjective: Course reviewed with nursing staff Patient interviewed and examined All labs, imaging and other results reviewed Patient feels better today, doing well with po narcotics Christopher Cl liq diet well, no c/o n/v. Reviewed labs with patient. No over night events PHYSICAL EXAMINATION: GENERAL: Alert & oriented x 3 SKIN: No lesions, EYES: Pupils, dilated, reactive to light, no discharge. CHEST: Inspection within normal limits. CARDIOVASCULAR: Heart: Regular rate and rhythm RESPIRATORY: Lungs clear to auscultation GASTROINTESTINAL AND LIVER: Abdomen: Soft, upper abd pain, non-distended, no hernias, no masses, no organomegaly, no ascites, no guarding, no rebound tenderness, normoactive bowel sounds. Rectal: Deferred. GENITOURINARY:Not examined EXTREMITIES: No cyanosis, clubbing or edema. Result Diagram: 04/19/18 0547 04/20/18 0555 Results 24hrs Laboratory Tests Test 04/20/18 05:55 Sodium Level 139 Potassium Level 3.5 Chloride Level 102 Carbon Dioxide Level 29 Anion Gap 8 Blood Urea Nitrogen 6 L Creatinine 0.70 Est Glomerular Filtrat Rate mL/min > 60 Glucose Level 85 # Calcium Level 9.0 Amylase Level 50 Lipase 152 Exam/Review of Systems Vital Signs Vitals Vital Signs Date Temp Pulse Resp B/P (MAP) Pulse Ox O2 O2 Flow FiO2 Time Delivery Rate 04/20/18 98.0 91 20 93/54 (67) 94 11:36 04/20/18 Room Air 04:00 Intake and Output 04/19/18 04/19/18 04/20/18 1515:00 23:00 07:00 IntakeIntake Total 1450 ml 120 ml OutputOutput Total 200 ml 800 ml 950 ml BalanceBalance -200 ml 650 ml -830 ml Medications Medications Current Medications IV Flush (NS 3 ml) 3 ml PER PROTOCOL IV ; Start 04/13/18 at 18:00 Ondansetron HCl (Zofran Inj) 4 mg Q6H PRN IV NAUSEA AND/OR VOMITING Last administered on 04/19/18at 19:36; Admin Dose 4 MG; Start 04/13/18 at 18:00 Acetaminophen (Tylenol Tab) 650 mg Q6H PRN PO PAIN LEVEL 1-3 OR FEVER; Start 04/13/18 at 18:00 Acetaminophen (Tylenol Supp) 650 mg Q6H PRN [place] PAIN LEVEL 1-3 OR FEVER; Start 04/13/18 at 18:00 Multivitamins 10 ml/Folic Acid 1 mg/Sodium Chloride 1,010.2 ml @ 125 mls/ hr DAILY@09 IVPB Last administered on 04/20/18at 09:32; Admin Dose 125 MLS/HR; Start 04/14/18 at 09:00 Pantoprazole (Protonix Iv) 40 mg BID@0600,1800 IV Last administered on 04/20/18at 05:45; Admin Dose 40 MG; Start 04/14/18 at 06:00 Miscellaneous Information (* Miscellaneous Pharmacy Order) THIAMINE IV FOR USE IN [place] ... DAILY@0900 XX ; Start 04/14/18 at 09:00 Haloperidol (Haldol) 2 mg Q6H PRN IM agitation Last administered on 04/17/18at 12:51; Admin Dose 2 MG; Start 04/17/18 at 10:30 Fluoxetine HCl (Prozac) 40 mg DAILY PO Last administered on 04/20/18at 09:32; Admin Dose 40 MG; Start 04/20/18 at 09:00 Quetiapine Fumarate (Seroquel) 300 mg HS PO Last administered on 04/19/18at 21:05; Admin Dose 300 MG; Start 04/19/18 at 21:00 Trazodone HCl (Desyrel) 200 mg QHS PO Last administered on 1/20/19at 21:05; Admin Dose 200 MG; Start 04/19/18 at 21:00 Oxycodone/ Acetaminophen (Percocet (5/ 325)) 1 tab Q4H PRN PO MODERATE PAIN LEVEL 4-6 Last administered on 04/20/18at 09:40; Admin Dose 1 TAB; Start 04/19/18 at 16:00 FENG ZAMAN Apr 20, 2018 11:43
--- NOTE | 2018-04-20 12:13 | PDOCDIS ---
Discharge Instructions DIAGNOSIS Discharge Diagnosis Pancreatitis CONDITION [id number] Patient Condition: [id number] Stable HOME CARE INSTRUCTIONS: [id number] Special Diet: [id number] NPO FOLLOW UP/APPOINTMENTS Follow-up Plan Stop drinking alcohol. Return to the emergency room if you have any concerning symptoms TATO PAINTING MD Apr 20, 2018 12:13
--- NOTE | 2018-04-20 12:32 | DS ---
Date/Time of Note Date/Time of Note DATE: 04/20/18 TIME: 12:31 Discharge Summary Admission/Discharge Info Admit Date/Time Apr 13, 2018 at 17:31 Discharge Date/Time Discharge Diagnosis Pancreatitis Patient Condition: Stable Hospital Course Patient presented with abdominal pain. On CT imaging found to have mild pancreatitis, confirm with elevated lipase. Etiology was from etoh use. He was treated wtih IV fluids. Pancreatitis resolved. He was encouraged to avoid further alcohol intake Home Meds Active Scripts Folic Acid* (Folic Acid*) 1 Mg Tablet, 1 MG PO DAILY for 30 Days, #30 TAB 3 Refills Prov:TATIANA GIPSON MD 08/29/17 Thiamine* (Vitamin B-1*) 100 Mg Tablet, 100 MG PO DAILY for 30 Days, #30 TAB 3 Refills Prov:TATIANA GIPSON MD 08/29/17 Multivitamins* (Theragran*) 1 Tab Tab, 1 TAB PO DAILY for 30 Days, #30 TAB 3 Refills Prov:TATIANA GIPSON MD 08/29/17 Fluoxetine Hcl* (Prozac*) 40 Mg Capsule, 40 MG PO DAILY for 30 Days, #30 CAP 3 Refills Prov:TATIANA GIPSON MD 08/29/17 Trazodone Hcl* (Trazodone Hcl*) 100 Mg Tablet, 200 MG PO QHS for 30 Days, #30 TAB 3 Refills Prov:TATIANA GIPSON MD 08/29/17 Quetiapine Fumarate* (Seroquel*) 300 Mg Tablet, 300 MG PO HS for 30 Days, #30 TAB 3 Refills Prov:TATIANA GIPSON MD 08/29/17 Follow-up Plan Stop drinking alcohol. Return to the emergency room if you have any concerning symptoms Primary Care Provider [facility] Pending Labs Laboratory Tests Test 04/20/18 05:55 Sodium Level 139 mmol/L (135-144) Potassium Level 3.5 mmol/L (3.5-5.1) Chloride Level 102 mmol/L (97-110) Carbon Dioxide Level 29 mmol/L (21-31) Anion Gap 8 (5-13) Blood Urea Nitrogen 6 mg/dl (7-20) Creatinine 0.70 mg/dl (0.61-1.24) Est Glomerular Filtrat Rate mL/min > 60 mL/min (>60) Glucose Level 85 mg/dl (70-220) Calcium Level 9.0 mg/dl (8.4-10.2) Amylase Level 50 U/L (11-123) Lipase 152 U/L (23-300) TATO PAINTING MD Apr 20, 2018 12:32
[2018-04-20] MEDS: traZODone 100 MG TAB PO SCH (21:03)
[2018-04-20] MEDS: QUETIAPINE 100 MG TAB PO SCH (21:03)
[2018-04-21] VITALS (13 sets, daily range): BP systolic 87–119; BP diastolic 52–67; PULSE 67–98; RESP 17–20
[2018-04-21] MEDS: PANTOPRAZOLE 40 MG INJ IV SCH ×2 (05:38→17:37)
--- NOTE | 2018-04-21 06:39 | NUR ---
END OF SHIFT REPORT SINUS RHTYHM ON THE MONITOR. GAVE ONE DOSE OF PERCOCET FOR PAIN. OTHERWISE NO OTHER UNDUE DEVELOPMENT
[2018-04-21] MEDS: FLUOXETINE 20 MG CAP PO SCH (08:55)
[2018-04-21] MEDS: MULTIVITAMINS 10 ML, FOLIC ACID 1 MG in SOD CHLORIDE 0.9% 1,000 ML IVPB SCH (12:40)
--- NOTE | 2018-04-21 13:18 | PN ---
Date/Time of Note Date/Time of Note DATE: 04/21/18 TIME: 13:17 Assessment/Plan VTE Prophylaxis Risk score (from Ns)>0 risk: 0 SCD applied (from Ns): No SCD contraindicated: other (scds) Pharmacological prophylaxis: other (scds) Lines/Catheters IV [facility]from [facility] Saline Lock Urinary Cath still in place: No Assessment/Plan Hospital Course Assessment/Plan Assessment: Recurrent pancreatitis, ETOH induced Elevated liver enzymes- trending down -CT with contrast shows no focal mass or dilatation of the biliary tree. -MRCP- neg for choledocholithiasis Normocytic anemia Alcohol-induced fatty liver-DF -8.7- treatment not required Alcohol abuse Plan: Soft diet If patient can tolerate PO intake ok for d/c from GI point of view Patient seen in collaboration with Dr. Graham/Mini Subjective: Course reviewed with nursing staff Patient interviewed and examined All labs, imaging and other results reviewed D/c held pt c/o some abd pain post prandial Will monitor today, d/c planning per hospitalist likely tomorrow Pt to f/u with GI as an out-pt PHYSICAL EXAMINATION: GENERAL: Alert & oriented x 3 SKIN: No lesions, EYES: Pupils, dilated, reactive to light, no discharge. CHEST: Inspection within normal limits. CARDIOVASCULAR: Heart: Regular rate and rhythm RESPIRATORY: Lungs clear to auscultation GASTROINTESTINAL AND LIVER: Abdomen: Soft, upper abd pain, non-distended, no hernias, no masses, no organomegaly, no ascites, no guarding, no rebound tenderness, normoactive bowel sounds. Rectal: Deferred. GENITOURINARY:Not examined EXTREMITIES: No cyanosis, clubbing or edema. Result Diagram: 04/19/18 0547 04/20/18 0555 Exam/Review of Systems Vital Signs Vitals Vital Signs Date Temp Pulse Resp B/P (MAP) Pulse Ox O2 O2 Flow FiO2 Time Delivery Rate 04/21/18 77 12:29 04/21/18 98.0 20 87/53 (64) 98 11:05 04/20/18 Room Air 04:00 Intake and Output 04/20/18 04/20/18 04/21/18 1515:00 23:00 07:00 IntakeIntake Total 650 ml 700 ml OutputOutput Total 700 ml BalanceBalance -50 ml 700 ml Medications Medications Current Medications IV Flush (NS 3 ml) 3 ml PER PROTOCOL IV ; Start 04/13/18 at 18:00 Ondansetron HCl (Zofran Inj) 4 mg Q6H PRN IV NAUSEA AND/OR VOMITING Last administered on 04/19/18at 19:36; Admin Dose 4 MG; Start 04/13/18 at 18:00 Acetaminophen (Tylenol Tab) 650 mg Q6H PRN PO PAIN LEVEL 1-3 OR FEVER; Start 04/13/18 at 18:00 Acetaminophen (Tylenol Supp) 650 mg Q6H PRN [place] PAIN LEVEL 1-3 OR FEVER; Start 04/13/18 at 18:00 Multivitamins 10 ml/Folic Acid 1 mg/Sodium Chloride 1,010.2 ml @ 125 mls/ hr DAILY@09 IVPB Last administered on 04/21/18at 12:40; Admin Dose 125 MLS/HR; Start 04/14/18 at 09:00 Pantoprazole (Protonix Iv) 40 mg BID@0600,1800 IV Last administered on 04/21/18 05:38; Admin Dose 40 MG; Start 04/14/18 at 06:00 Miscellaneous Information (* Miscellaneous Pharmacy Order) THIAMINE IV FOR USE IN [place] ... DAILY@0900 XX ; Start 04/14/18 at 09:00 Haloperidol (Haldol) 2 mg Q6H PRN IM agitation Last administered on 04/17/18at 12:51; Admin Dose 2 MG; Start 04/17/18 at 10:30 Fluoxetine HCl (Prozac) 40 mg DAILY PO Last administered on 04/21/18 08:55; Admin Dose 40 MG; Start 04/20/18 at 09:00 Quetiapine Fumarate (Seroquel) 300 mg HS PO Last administered on 04/20/18 21:03; Admin Dose 300 MG; Start 04/19/18 at 21:00 Trazodone HCl (Desyrel) 200 mg QHS PO Last administered on 04/20/18 21:03; Admin Dose 200 MG; Start 04/19/18 at 21:00 Oxycodone/ Acetaminophen (Percocet (5/ 325)) 1 tab Q4H PRN PO MODERATE PAIN LEVEL 4-6 Last administered on 04/20/18 21:07; Admin Dose 1 TAB; Start 04/19/18 at 16:00 FENG ZAMAN Apr 21, 2018 13:18
--- NOTE | 2018-04-21 13:58 | NUR ---
CM NOTES: RECEIVED A CALL FROM ABRAHAN ([phone]) FROM [facility] AND WAS INFORMED THAT SHE IS WAITING FOR PLACEMENT FOR PT WHEN D/C'D. SHE WANTED TO KNOW IF WE ARE ABLE TO PROVIDE TRANSPORTATION FOR PT EITHER BUS TOKENS OR TAXI VOUCHER. ABRAHAN SAID THAT SHE WILL CALL THIS CM BACK TOMORROW RE: PLACEMENT. MARK LOPEZ, RNCM [phone]
--- NOTE | 2018-04-21 17:40 | PN ---
Date/Time of Note Date/Time of Note DATE: 04/21/18 TIME: 17:40 Assessment/Plan VTE Prophylaxis Risk score (from Ns)>0 risk: 0 SCD applied (from Ns): No SCD contraindicated: low risk/ambulating Pharmacological prophylaxis: heparin Lines/Catheters IV Catheter Type (from Nrsg): Saline Lock Urinary Cath still in place: No Assessment/Plan Hospital Course Patient presented with abdominal pain. On CT imaging found to have mild pancreatitis, confirm with elevated lipase. Etiology was from etoh use. He was treated wtih IV fluids. Pancreatitis resolved. He was encouraged to avoid further alcohol intake home tomorrow Result Diagram: 04/19/18 0547 04/20/18 0555 Subjective 24 Hr Interval Summary Free Text/Dictation Patient reporting abdoinal pain. Doesn't feel ready to go home Exam/Review of Systems Vital Signs Vitals Vital Signs Date Temp Pulse Resp B/P (MAP) Pulse Ox O2 O2 Flow FiO2 Time Delivery Rate 04/21/18 86 16:30 04/21/18 97.6 20 97/52 (67) 96 15:31 04/20/18 Room Air 04:00 Intake and Output 04/20/18 04/20/18 04/21/18 1414:59 22:59 06:59 IntakeIntake Total 650 ml 700 ml OutputOutput Total 700 ml BalanceBalance -50 ml 700 ml Exam Constitutional: alert, oriented, well developed Psych: no complaints, nl mood/affect Head: normocephalic, atraumatic Eyes: nl conjunctiva, EOMI, nl lids, nl sclera, PERRL ENMT: nl external ears & nose, nl lips & teeth, nl nasal mucosa & septum Neck: supple, non-tender Respiratory: clear to auscultation, normal air movement Cardiovascular: regular rate and rhythm, nl pulses Gastrointestinal: soft, nl liver, spleen, non-tender Musculoskeletal: nl extremities to inspection, nl gait and stance Extremities: normal pulses Neurological: LEVEL VIAL MARKER II-XII intact, nl mental status, nl speech, nl strength Skin: nl turgor; No rash or lesions Lymph: nl lymph nodes Medications Medications Current Medications IV Flush (NS 3 ml) 3 ml PER PROTOCOL IV ; Start 04/13/18 at 18:00 Ondansetron HCl (Zofran Inj) 4 mg Q6H PRN IV NAUSEA AND/OR VOMITING Last administered on 04/19/18 19:36; Admin Dose 4 MG; Start 04/13/18 at 18:00 Acetaminophen (Tylenol Tab) 650 mg Q6H PRN PO PAIN LEVEL 1-3 OR FEVER; Start 04/13/18 at 18:00 Acetaminophen (Tylenol Supp) 650 mg Q6H PRN [place] PAIN LEVEL 1-3 OR FEVER; Start 04/13/18 at 18:00 Multivitamins 10 ml/Folic Acid 1 mg/Sodium Chloride 1,010.2 ml @ 125 mls/ hr DAILY@09 IVPB Last administered on 04/21/18 12:40; Admin Dose 125 MLS/HR; Start 04/14/18 at 09:00 Pantoprazole (Protonix Iv) 40 mg BID@0600,1800 IV Last administered on 04/21/18at 17:37; Admin Dose 40 MG; Start 04/14/18 at 06:00 Miscellaneous Information (* Miscellaneous Pharmacy Order) THIAMINE IV FOR USE IN [place] ... DAILY@0900 XX ; Start 04/14/18 at 09:00 Haloperidol (Haldol) 2 mg Q6H PRN IM agitation Last administered on 04/17/18 12:51; Admin Dose 2 MG; Start 04/17/18 at 10:30 Fluoxetine HCl (Prozac) 40 mg DAILY PO Last administered on 04/21/18at 08:55; Admin Dose 40 MG; Start 04/20/18 at 09:00 Quetiapine Fumarate (Seroquel) 300 mg HS PO Last administered on 04/20/18 21:03; Admin Dose 300 MG; Start 04/19/18 at 21:00 Trazodone HCl (Desyrel) 200 mg QHS PO Last administered on 04/20/18 21:03; Admin Dose 200 MG; Start 04/19/18 at 21:00 Oxycodone/ Acetaminophen (Percocet (5/ 325)) 1 tab Q4H PRN PO MODERATE PAIN LEVEL 4-6 Last administered on 04/20/18at 21:07; Admin Dose 1 TAB; Start 04/19/18 at 16:00 TATO PAINTING MD Apr 21, 2018 17:40
[2018-04-21] MEDS ORDERED: IBUPROFEN 400 MG TAB PO PRN (18:00)
--- NOTE | 2018-04-21 18:33 | NUR ---
EOSS Pt is alert and oriented x 4 , denies pain at this navdeep , SR on the monitor , With Banana bag infusing . Ambulated in the hallway x 1 . Continue to monitor pt.
[2018-04-21] MEDS: traZODone 100 MG TAB PO SCH (20:36)
[2018-04-21] MEDS: QUETIAPINE 100 MG TAB PO SCH (20:36)
[2018-04-22] VITALS: PULSE 68
[2018-04-22 03:44] VITALS: BP 94/58; PULSE 57; RESP 17
[2018-04-22 04:00] VITALS: PULSE 55
[2018-04-22] MEDS: PANTOPRAZOLE 40 MG INJ IV SCH (06:13)
--- NOTE | 2018-04-22 06:50 | NUR ---
END OF SHIFT REPORT NO UNDUE DEVELOPMENT. MOSTLY SINUS RHYTHM ON THE MONITOR, WITH EPISODES OF SINUS MARLENI IN THE 50'S. LOWEST 247 Addendum: 04/22/18 at 0652 by JENNY DENNEY RN MOSTLY SINUS RHYTHM. EPISODES OF SINUS MARLENI IN THE 50'S LOWEST AT 47. NO COMPLAINT OF PAIN.
[2018-04-22 07:18] VITALS: BP 86/54; PULSE 53; RESP 16
[2018-04-22 08:18] VITALS: PULSE 61
[2018-04-22] MEDS: FLUOXETINE 20 MG CAP PO SCH (08:21)
[2018-04-22] MEDS: MULTIVITAMINS 10 ML, FOLIC ACID 1 MG in SOD CHLORIDE 0.9% 1,000 ML IVPB SCH (09:00)
--- NOTE | 2018-04-22 10:13 | NUR ---
RN NOTES: PT WILL BE GOING TO A [facility]. WAITING ON ELECTRICAL SYSTEM SPECIALIST TO SPEAK WITH LABORER [employer]W FROM THE [facility] FOR PT TO BE DISCHARGED. WILL CONTINUE TO MONITOR PT.
[2018-04-22 11:11] VITALS: BP 104/62; PULSE 72; RESP 16
--- NOTE | 2018-04-22 12:00 | NUR ---
SW: CONSULT Patient provided with a Large Shirt, per patient's request. He is to be d/c'd today. SW remains available as needed. No other questions/ concerns reported at this time.
--- NOTE | 2018-04-22 12:17 | NUR ---
DISCHARGE NOTES: PT IS DISCHARGED TO [facility] F[facility]. [employer] MAINTENANCE HAS ARRANGED FOR [facility]. PT HAS TAXI VOUCHER TO GOT O THE [facility]. HOE WORKER HAS SEEN HIM; HOE WORKER ALSO PROVIDED A SHIRT FOR HIM BECAUSE HIS SHIRT IS MISSING. PT IS AOX4, STEADY GAIT, RESPIRATIONS UNLABORED, DENIES PAIN. 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 IV DC'D WITH TIP INTACT, APPLIED DRESSING AND HELD PRESSURE. DISCHARGE INSTRUCTION PROVIDED AND EXPLAINED TO PT. PT VERBALIZED UNDERSTANDING. PT DISCHARGED WITH VOLUNTEER VIA WHEELCHAIR.
--- NOTE | 2018-04-22 14:37 | DS ---
Date/Time of Note Date/Time of Note DATE: 04/22/18 TIME: 14:37 Discharge Summary Admission/Discharge Info Admit Date/Time Apr 13, 2018 at 17:31 Discharge Date/Time Apr 22, 2018 at 12:13 Discharge Diagnosis Pancreatitis Patient Condition: Stable Hospital Course Patient presented with abdominal pain. On CT imaging found to have mild pancreatitis, confirm with elevated lipase. Etiology was from etoh use. He was treated wtih IV fluids. Pancreatitis resolved. He was encouraged to avoid further alcohol intake home tomorrow Home Meds Active Scripts Folic Acid* (Folic Acid*) 1 Mg Tablet, 1 MG PO DAILY for 30 Days, #30 TAB 3 Refills Prov:TATIANA GIPSON MD 08/29/17 Thiamine* (Vitamin B-1*) 100 Mg Tablet, 100 MG PO DAILY for 30 Days, #30 TAB 3 Refills Prov:TATIANA GIPSON MD 08/29/17 Multivitamins* (Theragran*) 1 Tab Tab, 1 TAB PO DAILY for 30 Days, #30 TAB 3 Refills Prov:TATIANA GIPSON MD 08/29/17 Fluoxetine Hcl* (Prozac*) 40 Mg Capsule, 40 MG PO DAILY for 30 Days, #30 CAP 3 Refills Prov:TATIANA GIPSON MD 08/29/17 Trazodone Hcl* (Trazodone Hcl*) 100 Mg Tablet, 200 MG PO QHS for 30 Days, #30 TAB 3 Refills Prov:TATIANA GIPSON MD 08/29/17 Quetiapine Fumarate* (Seroquel*) 300 Mg Tablet, 300 MG PO HS for 30 Days, #30 TAB 3 Refills Prov:TATIANA GIPSON MD 08/29/17 Follow-up Plan Stop drinking alcohol. Return to the emergency room if you have any concerning symptoms Primary Care Provider [facility] TATO PAINTING MD Apr 22, 2018 14:37
== END 2018-04-22 12:13 | disposition home or self-care (01) | DRG 440 ==
LOC: TEL 17:31
PROVIDERS: ADMIT Internal Medicine; ATTEND Internal Medicine
DX: K85.20 Alcohol induced acute pancreatitis without necrosis or infection (principal); N40.1 Benign prostatic hyperplasia with lower urinary tract symptoms; R33.8 Other retention of urine; F10.229 Alcohol dependence with intoxication, unspecified; K70.0 Alcoholic fatty liver; F41.9 Anxiety disorder, unspecified; F32.9 Major depressive disorder, single episode, unspecified; F17.200 Nicotine dependence, unspecified, uncomplicated; D64.9 Anemia, unspecified
CPT/HCPCS: 74176; 74177; 74181; 80048; 80053; 80061; 82150; 82787; 82962; 83690; 83735; 84100; 84443; 84484; 85025; 85610; 86038; 86255; 86704; 86706; 86708; 86803; 87340; 93306; C9113; J1170; J1630; J1885; J2060; J2274; J2405; J2543; J3411; J3480; J7030; J7040; J7042; Q9967